=== PATIENT | female | born 1985 | race Hispanic/Latino ===

== ENCOUNTER 2024-04-19 12:58 | Inpatient (IN) | payer SELFPAY ==
[~2024-04-19] VITALS: Ht 152.4 cm; Wt 69.2 kg
[2024-04-19 00:30] VITALS: BP 104/63; PULSE 135; RESP 20; TEMP 100.1
--- NOTE | 2024-04-19 13:50 | ERN ---
ED Note History of Present Illness Stated Complaint: KIDNEY PAIN Chief Complaint: Flank Pain Time Seen by MD: 13:03 Time Seen by Midlevel: 13:03 Dictation: 39-year-old female presents to the ED for evaluation of left lower quadrant abdominal pain for the past three days. Patient reports she fell like this in the past when she had kidney stones. Reports associated body aches chills and subjective fever. Denies dysuria, hematuria. No nausea, vomiting, diarrhea. Allergies: Coded Allergies: No Known Drug Allergies (Verified Allergy, 12/27/11) Past Medical History Past Medical History: No Pertinent History Surgical History: Cholecystectomy Surgical History Other: KIDNEY STONE REMOVAL, NEPHROSTOMY TUBE RN Note Reviewed/Agreed w/PFSH: Yes Review of System Dictation Constitutional: Negative for fever,chills, and weight loss Eyes: Negative for injury, pain,redness, and discharge ENT: Negative for injury,pain or swelling Cardiovascular: Negative for chest pain, palpitations, and edema Respiratory: Negative for shortness of breath, cough, and wheezing, Abdomen/GI: Negative for nausea, vomiting, diarrhea, and constipation Back: Negative for injury and pain : Negative for injury, bleeding and discharge MS/Extremity: Negative for injury and deformity Skin: Negative for rash, and discoloration Neuro: Negative for headache, weakness, numbness, tingling, and seizure Psych: Negative for suicide ideation, homicidal ideation, and hallucinations Review of Systems: was completed Initial Vital Sign VS Vital Signs Date Time Temp Pulse Resp B/P (MAP) Pulse Ox O2 Delivery O2 Flow Rate FiO2 04/19/24 13:33 99.9 128 20 130/87 98 Room Air 04/19/24 15:17 0 21 Physical Exam Dictation Vital Signs reviewed General Appearance: Alert, oriented x 3, no acute distress, well developed, nourished. Head and Face: non-traumatic. Eyes: PERRL, pink conjunctivas, eyelid no trauma, anterior chamber with arcus senilis. Ears: Pinnas intact and no signs of trauma or erythema ear canals clear and no discharge TM no erythema Nose: No discharge, no bleeding. Oropharynx: Mouth normal, tongue pink, pharynx clear,no erythema, tonsils no exudates, no abscesses noted, mucous membrane moist Neck: Supple, non-tender, no thyromegaly, no masses, no JVD, no bruits Breast:Deferred Chest:No tenderness, no crepitus, no paradoxical movement, no retractions Lungs:Clear, well-ventilated, symmetric, no rales, no wheezing, no rhonchi, no stridor, good breath sounds bilaterally Heart: Regular rate, regular rhythm, no murmur, no gallops Vascular: no peripheral edema, Abdomen: positive bowel sounds, nondistended, no guarding, mild LLQ abdominal pain. No CVA tenderness nontender, no rebound, no masses no hepatomegaly, no splenomegaly, no Oconnor's sign, no hernias. Rectal: Deferred Genital: Deferred Neurological: Normal speech, motor function intact, sensory function intact Musculoskeletal: Neck nontender, full range of motion, back nontender, full range of motion, Extremities: nontender, full range of motion Skin: Color pink, dry, no turgor, no rash, no lacerations, no abrasions, no contusions. Lymphatic: Deferred Results (Laboratory/Radiology) Laboratory/Radiology Laboratory Tests Test 04/19/24 13:47 04/19/24 15:32 04/19/24 18:23 White Blood Count 11.3 K/uL (4.8-10.8) H Red Blood Count 4.49 MIL/uL (4.00-5.50) Hemoglobin 13.8 g/dL (12.0-16.0) Hematocrit 40.0 % (36-48) Mean Corpuscular Volume 89.1 fL (79-99) Mean Corpuscular Hemoglobin 30.7 pg (27.0-33.0) Mean Corpuscular Hemoglobin Concent 34.5 g/dL (32.0-36.0) Red Cell Distribution Width 12.5 % (11.0-15.5) Platelet Count 214 K/uL (130-400) Mean Platelet Volume 10.4 fL (7.5-10.5) Immature Granulocyte % (Auto) 0.6 % (0-1) Neutrophils (%) (Auto) 89.7 % (40.0-77.0) H Lymphocytes (%) (Auto) 8.0 % (21.0-51.0) L Monocytes (%) (Auto) 1.4 % (3.0-13.0) L Eosinophils (%) (Auto) 0.1 % (0.0-8.0) Basophils (%) (Auto) 0.2 % (0.0-5.0) Neutrophils # (Auto) 10.1 K/uL (1.8-7.7) H Lymphocytes # (Auto) 0.9 K/uL (1.0-4.8) L Monocytes # (Auto) 0.2 K/uL (0.1-1.0) Eosinophils # (Auto) 0.01 K/uL (0.00-0.70) Basophils # (Auto) 0.02 K/uL (0.00-0.20) Absolute Immature Granulocyte (auto 0.07 K/uL (0-1) Nucleated Red Blood Cells 0.0 % (0.0-0.19) White Cell Morphology Comment See comments Sodium Level 135 mmol/L (136-145) L Potassium Level 3.6 mmol/L (3.5-5.1) Chloride Level 99 mmol/L (101-111) L Carbon Dioxide Level 27 mmol/L (21-32) Blood Urea Nitrogen 8 mg/dL (7-18) Creatinine 1.2 mg/dL (0.5-1.0) H Glomerular Filtration Rate Calc 58 mL/min (>90) Random Glucose 176 mg/dL (70-105) H Total Calcium 9.1 mg/dL (8.5-10.1) Urine Color DARK-YELLOW (YELLOW) Urine Appearance CLOUDY (CLEAR) H Urine pH 6.5 (5.0-8.0) Urine Specific [place] 1.021 (1.001-1.031) Urine Protein 30 mg/dL (NEGATIVE) H Urine Glucose (UA) TRACE mg/dL (NEGATIVE) H Urine Ketones NEGATIVE mg/dL (NEGATIVE) Urine Occult Blood SMALL (NEGATIVE) H Urine Nitrate 2+ (NEGATIVE) H Urine Bilirubin 2 mg/dL (NEGATIVE) H Urine Urobilinogen 6 mg/dL (0.2-1.0) H Urine Leukocyte Esterase 500 Sam/uL (NEGATIVE) H Urine RBC 26-50 /HPF (0-1) H Urine WBC TNTC /HPF (0-1) H Urine Squamous Epithelial Cells MOD /HPF (0-2) Urine Bacteria RARE /HPF (None Seen) Urine HCG, Qualitative NEGATIVE (NEGATIVE) Lactic Acid Level 1.4 mmol/L (0.8-2.5) Labs Reviewed?: Yes CT Scan Comment: REASON: R/O KIDNEY STONES ORDERING PHYSICIAN: SUDARSHAN ALCANTAR PROCEDURE: ABD PEL WO - CT ABDOMEN/PELVIS W/O CONTRAST CT ABDOMEN/PELVIS W/O CONTRAST CLINICAL HISTORY: Renal colic COMPARISON: None TECHNIQUE: Sequential axial images of abdomen and pelvis without contrast and with sagittal and coronal reconstructions. CT was performed with one or more of the following dose reduction techniques: automated exposure control, adjustment of the mA and/or kV according to patient size, or use of iterative reconstruction technique FINDINGS: There is mild atelectasis in the lung bases. There is diffuse fatty infiltration liver. The spleen is unremarkable. Gallbladder surgically absent. The pancreas and adrenal glands are within normal limits. Note is made of multiple punctate bilateral renal nonobstructive calculi. There is mild left hydroureteronephrosis secondary to 2 calculi demonstrated in the distal left ureter just proximal ureteral fascicular junction with the largest measuring 4 mm. The bladder is unremarkable. There is no identified bowel obstruction. There is no free air or free fluid. There is no bulky abdominal or retroperitoneal lymphadenopathy. The appendix is unremarkable. The bony structures are unremarkable. IMPRESSION: Bilateral nonobstructive nephrolithiasis. Mild left hydroureteronephrosis secondary to distal left ureteral calculi. ED Course ED Course Orders Procedure Category Date Status Time Cbc With Differential LAB 04/19/24 Complete 13:12 Urinalysis Profile LAB 04/19/24 Complete 13:12 Ct Abdomen/Pelvis W/O CT 04/19/24 Resulted Contrast 13:12 0.9%Nacl 1000ml (Ns PHA 04/19/24 Complete 1000ml) 13:30 Ketorolac PHA 04/19/24 Complete Tromethamine 30mg/Ml 13:30 Ondansetron 4mg Inj PHA 04/19/24 Complete (Zofran 4mg Inj) 13:30 ,Urine Test LAB 04/19/24 Complete 13:12 Basic Metabolic Panel LAB 04/19/24 Complete 13:12 Culture Urine LARRY 04/19/24 In Process 16:35 Ceftriaxone 1g Vial PHA 04/19/24 Complete (Rocephine 1g Inj) 17:10 Ondansetron 4mg Inj PHA 04/19/24 In Process (Zofran 4mg Inj) 18:06 Morphine 2mg Syg PHA 04/19/24 In Process (Morphine 2mg Syg) 18:06 Blood Cult LARRY 04/19/24 In Process 18:08 Lactic Acid LAB 04/19/24 Complete 18:08 0.9%Nacl 1000ml (Ns PHA 04/19/24 Complete 1000ml) 18:30 Current Medications Medications (Trade) Dose Ordered Sig/Marychuy Route PRN Reason Start Time Stop Time Status Last Admin Dose Admin Ceftriaxone Sodium (ROCEphine 1G INJ) 1 gm ONCE IVPB 04/19/24 17:10 04/19/24 21:30 DC 04/19/24 18:18 Ketorolac Tromethamine (toRADol) 30 mg ONCE ONCE IVP 04/19/24 13:30 04/19/24 13:31 DC 04/19/24 15:12 Morphine Sulfate (morPHINE 2MG SYG) 2 mg ONCE IVP 04/19/24 18:06 04/19/24 22:00 04/19/24 18:13 Ondansetron HCl (zoFRAN 4MG INJ) 4 mg ONCE IVP 04/19/24 18:06 04/19/24 22:00 04/19/24 18:12 Ondansetron HCl (zoFRAN 4MG INJ) 4 mg ONCE ONCE IVP 04/19/24 13:30 04/19/24 13:31 DC 04/19/24 15:12 Sodium Chloride 1,000 ml @ 0 mls/hr ONCE ONCE IV 04/19/24 13:30 04/19/24 13:31 DC 04/19/24 15:12 Sodium Chloride 1,000 ml @ 0 mls/hr ONCE ONCE IV 04/19/24 18:30 04/19/24 18:31 DC 04/19/24 18:20 Vital Signs Date Time Temp Pulse Resp B/P (MAP) Pulse Ox O2 Delivery O2 Flow Rate FiO2 04/19/24 19:58 98.8 98 16 122/86 99 Room Air* 0 21 04/19/24 17:00 99.0 96 16 128/80 98 Room Air* 0 21 04/19/24 15:17 99.9 125 20 128/85 98 Room Air* 0 21 04/19/24 13:33 99.9 128 20 130/87 98 Room Air 2141 Spoke with hospitalist, Dr. Aguirre who agrees with plan for admission Medical Decision Making MDM MDM: Differential diagnosis: Pyelonephritis, UTI, nephrolithiasis, EFRA, abdominal pain, back pain Rationale: Tests considered and ordered secondary to shared decision making include: Previous outside records reviewed: Old ER visits. Risk of complication and/or morbidity or mortality of patient management: None Medications-Per medication reconciliation Need for hospitalization: Patient does meet criteria for hospitalization. Need for emergency major/minor surgery: No There are no social concerns with this patient. Prescription drug management Prescriptions will include symptomatic care Patient's prior external medical records from other ER visits were reviewed by me as indicated. Prior testing and results from previous visits were reviewed. Prior tests were taken into account with medical decision making and resource utilization, independent historian/historians were used to obtain complete medical history. I independently interpreted the test that were performed, results were reviewed by me and considered findings on radiology if ordered. Medical management and examination interpretation discussions were had by me with other qualified healthcare professionals as indicated for the patient's care. Patient when a low-grade fever and tachycardic due to pain. Patient was came has a Toradol here in the ER with improvement in symptoms and vital signs. Patient given dose of Rocephin and started on bolus of NS. Patient continued pain they are while waiting for CT results so he was given morphine. L eukocytosis 11.3. Elevated creatinine 1.2. Normal lactic acid. UA shows findings consistent with UTI with 500 leukocyte esterase and too many Kale and urine WBC years well as potential kidney stone with blood in the urine. CT scan shows bilateral nonobstructing nephrolithiasis and mild hydroureteronephrosis secondary to distal left urethral calculi with the largest measuring 4 mm. Discussed plan for possible admission with the patient and agreed with plan. Spoke with the hospitalist Dr. Aguirre, who agrees with the admission plan. Critical Care Note Critical Time: 30 minutes Comment(s) Total critical care time was 33 minutes. Excluding time for procedures. Management of critically ill patient with concern for acute decompensation. Management included interpretation of laboratory values and imaging, hemodynamics, time for consultation with consultants and admitting physician. DX & DISP Disposition: Inpatient Decision to Admit Date: Apr 19, 2024 Decision to Admit Time: 20:34 Departure Impression: Primary Impression: Urethral calculus Additional Impressions: Hydronephrosis, UTI (urinary tract infection), Sepsis, Intractable abdominal pain Critical Time: 30 minutes Condition: Stable Referrals: SELF,REFERRAL (PCP) I have reviewed the case, and I agree with, Diagnosis and Plan SUDARSHAN ALCANTAR Apr 19, 2024 13:50
[2024-04-19 14:14] LABS: BASOPHILS # (AUTO) 0.02 K/uL (0.00-0.20); BASOPHILS % (AUTO) 0.2 % (0.0-5.0); EOSINOPHILS # (AUTO) 0.01 K/uL (0.00-0.70); EOSINOPHILS % (AUTO) 0.1 % (0.0-8.0); IMMATURE GRANULOCYTE ABSOLUTE 0.07 K/uL (0-1); LYMPHOCYTES # (AUTO) 0.9 K/uL (1.0-4.8); MEAN CORPUSCULAR HEMOGLOBIN 30.7 pg (27.0-33.0); MEAN CORPUSCULAR HGB CONC 34.5 g/dL (32.0-36.0); MEAN CORPUSCULAR VOLUME 89.1 fL (79-99); MONOCYTES # (AUTO) 0.2 K/uL (0.1-1.0); MONOCYTES % (AUTO) 1.4 % (3.0-13.0); NEUTROPHILS # (AUTO) 10.1 K/uL (1.8-7.7); NEUTROPHILS % (AUTO) 89.7 % (40.0-77.0); PLATELET COUNT (AUTO) 214 K/uL (130-400); RED BLOOD CELL COUNT(AUTO) 4.49 MIL/uL (4.00-5.50); RED CELL DISTRIBUTION WIDTH 12.5 % (11.0-15.5); WHITE BLOOD COUNT (AUTO) 11.3 K/uL (4.8-10.8)
[2024-04-19 14:22] LABS: CREATININE 1.2 mg/dL (0.5-1.0); POTASSIUM 3.6 mmol/L (3.5-5.1)
[2024-04-19] MEDS: ketOROlac 30MG VIAL (30MG/ML) IVP ONE (15:12)
[2024-04-19] MEDS: ondanSETRON 4MG INJ IVP ONE (15:12)
[2024-04-19] MEDS: 0.9%NACL 1000ML 1,000 ML IV ONE ×2 (15:12→18:20)
--- NOTE | 2024-04-19 15:14 | NUR ---
PENDING TEST RESULTS FOR CT EXAM.
[2024-04-19 16:31] LABS: APPEARANCE,URINE CLOUDY (CLEAR); BILIRUBIN,URINE 2 mg/dL (NEGATIVE); COLOR,URINE DARK-YELLOW (YELLOW); GLUCOSE, URINE (UA) TRACE mg/dL (NEGATIVE); KETONES,URINE NEGATIVE (NEGATIVE); LEUKOCYTE ESTERASE ,URINE 500 Leu/uL (NEGATIVE); NITRATE,URINE 2+ (NEGATIVE); OCCULT BLOOD,URINE SMALL (NEGATIVE); PH,URINE 6.5 (5.0-8.0); PROTEIN,URINE 30 mg/dL (NEGATIVE); UROBILINOGEN,URINE 6 mg/dL (0.2-1.0)
[2024-04-19 16:34] LABS: ADD UA MICROSCOPIC YES; HCG,QUALITATIVE URINE NEGATIVE (NEGATIVE)
[2024-04-19 16:37] LABS: BACTERIA,URINE RARE /HPF (None Seen); MUCUS,URINE RARE LPF (None Seen); RBC,URINE 26-50 /HPF (0-1); SQUAMOUS EPITHELIAL CELL,UR MOD /HPF (0-2); WBC,URINE TNTC /HPF (0-1)
[2024-04-19] MEDS: ondanSETRON 4MG INJ IVP SCH (18:12)
[2024-04-19] MEDS: morPHINE 2 MG SYG IVP SCH (18:13)
[2024-04-19] MEDS: cefTRIAXone 1G VIAL IVPB SCH (18:18)
--- NOTE | 2024-04-19 20:11 | HMCIMG ---
CT ABDOMEN/PELVIS W/O CONTRAST CLINICAL HISTORY: Renal colic COMPARISON: None TECHNIQUE: Sequential axial images of abdomen and pelvis without contrast and with sagittal and coronal reconstructions. CT was performed with one or more of the following dose reduction techniques: automated exposure control, adjustment of the mA and/or kV according to patient size, or use of iterative reconstruction technique FINDINGS: There is mild atelectasis in the lung bases. There is diffuse fatty infiltration liver. The spleen is unremarkable. Gallbladder surgically absent. The pancreas and adrenal glands are within normal limits. Note is made of multiple punctate bilateral renal nonobstructive calculi. There is mild left hydroureteronephrosis secondary to 2 calculi demonstrated in the distal left ureter just proximal ureteral fascicular junction with the largest measuring 4 mm. The bladder is unremarkable. There is no identified bowel obstruction. There is no free air or free fluid. There is no bulky abdominal or retroperitoneal lymphadenopathy. The appendix is unremarkable. The bony structures are unremarkable. IMPRESSION: Bilateral nonobstructive nephrolithiasis. Mild left hydroureteronephrosis secondary to distal left ureteral calculi.
--- NOTE | 2024-04-19 21:54 | HP ---
History of Present Illness Reason for Visit: flank pain History of Present Illness Ms. Ridley 39-year-old female that was seen and examined today on 04/19/2024. Patient is a good historian and personal health. Patient states that she came to the emergency department with a chief complaint of dysuria. Onset was Monday04/16/2024. Location is genital. Duration is on and off. Character is described as burning. Symptoms are aggravated with voidi ng. Symptoms are not alleviated with Tylenol, [place] 0, chamomile tea. Patient reports associated nausea and vomiting times 10 episodes. Today in the emergency department creatinine 1.2, glucose 175 mg/dL, urinalysis positive for nitrate, leukocyte esterase, and white blood cells too many to count per high- powered microscopy field. Additionally CT of abdomen and pelvis shows bilateral nephrolithiasis, mild left hydroureteronephrosis with 4 mm calculus to the left ureter. For this reason emergency room physician recommended patient be admitted to the hospital. Past Medical History ADDITIONAL PAST MEDICAL HISTORY: [Denies] SOCIAL HISTORY: [Negative for smoking, alcohol use, drug use. Patient lives with her three children. Patient works at [employer]. Patient is typically independent of all her ADLs. Patient denies difficulty paying her bills. Patient has poor access to health care due to lack of health insurance.] SURGICAL HISTORY: [Cholecystectomy, nephrostomy tubes, bilateral tubal ligation] Review of Systems General: No Fever, No Chills, No Night Sweats, No Fatigue, No Malaise, No Appetite, No Other HEENT: No Head Aches, No Visual Changes, No Eye Pain, No Ear Pain, No Dysphasia, No Sinus Congestion, No Post Nasal Drip, No Sore Throat, No Other Pulmonary: No Dyspnea, No Cough, No Pleuritic Chest Pain, No Other Cardiovascular: No: Chest Pain, Palpitations, Orthopnea, Paroxysmal Noc. Dyspnea, Edema, Lt Headedness, Other Gastrointestinal: Nausea, Vomiting; No: Abdominal Pain, Diarrhea, Constipation, Melena, Hematochezia, Other Genitourinary: No Dysuria, No Frequency, No Incontinence, No Hematuria, No Retention, No Other Musculoskeletal: back pain; No: other, neck pain, shoulder pain, arm pain, hand pain, leg pain, foot pain Skin: No Urticaria, No Rash, No Other Neurological: No: Weakness, Numbness, Incoordination, Change in speech, Confusion, Seizures, Other Allergies: Coded Allergies: No Known Drug Allergies (Verified Allergy, 12/27/11) Exam Vital Signs Vital Signs Date Time Temp Pulse Resp B/P (MAP) Pulse Ox O2 Delivery O2 Flow Rate FiO2 04/19/24 19:58 98.8 98 16 122/86 99 Room Air* 0 21 General Appearance: Alert, Oriented X3, Cooperative, mild distress HEENT: Atraumatic, PERRLA, EOMI, Mucous membr. moist/pink Respiratory: Clear to auscultation, Normal air movement, NL respiratory effort Cardiovascular: Regular rate, Regular rhythm, Normal S1, Normal S2 Abdominal: Normal bowel sounds, No tenderness Extremities: No edema Skin: No significant lesion Neuro: Normal speech, Strength at 5/5 X4 ext, Sensation intact, Cranial nerves 3-12 NL Psych/Mental Status: Mental status NL, Mood NL, Thoughts/Content NL Assessment/Plan ASSESSMENT: [ Urinary tract infection, POA EFRA versus CKD, POA Hyperglycemia without a past medical history of Diabetes mellitius type2, POA Nephrolithiasis 4 mm left ureteral calculi] PLAN: [ Admit patient to medical floor as inpatient status. Empiric antibiotic therapy with Rocephin. Check urine culture, follow up with the results IV fluid maintenance therapy lactated Ringer's at 75 mL/HR Calculate FENA Check urine sodium, creatinine, osmolality Avoid nephrotoxic agents when possible Renally dose all medications when possible Consider consulting Nephrology service if any worsening renal function or evidence of ATN. Monitor patient's labs. Weight patient daily. Monitor intake and output Check hemoglobin A1c in a.m., consider starting sliding scale if hemoglobin A1c greater than 7.5% Start tamsulosin 0.4 mg by mouth once daily. Strain all urine GI prophylaxis, Protonix DVT prophylaxis, heparin ADVANCED CARE PLANNING 1. Which of the following were discussed? Hospice Care - Yes Therapeutic options - Yes Advance Directives - Yes- PATIENT STATES SHE DOES NOT HAVE ANY ADVANCE DIRECTIVES IN PLACE AT THIS TIME, HOWEVER HER MOTHER LULA Gimenez make decisions for her if she becomes unable. Other discussions - patient wishes to remain a full code at this time 2. Discussed with who? Patient 3. Voluntary nature of this service was explained to the patient? Yes 4. Amount of time spent - __ 16 minutes 5. Reviewed by Physician? (if this service was performed by NPP) Yes This document was generated in part using voice recognition software, occasional wrong word or sound alike substitutions may have occurred due to the inherent limitations of voice recognition software. Read the chart carefully and recognize using context, where the substitutions have occurred. Although every effort was made to edit the content, hand flesher and typing errors may occur ATTESTATION BY PHYSICIAN I have seen and examined the patient. I reviewed the documentation, medical decision making, and treatment plan as noted by the mid-level provider above. I agree with the findings and plan of care. BIB [facility] Apr 19, 2024 21:54
[2024-04-20] VITALS (7 sets, daily range): BP systolic 97–117; BP diastolic 58–76; PULSE 100–117; RESP 18–20; TEMP 97.9–98.8; O2SAT 96–99
[2024-04-20] MEDS ORDERED: ondanSETRON 4MG INJ IV PRN
[2024-04-20] MEDS ORDERED: ketOROlac 10 MG TABLET PO SCH
[2024-04-20] MEDS ORDERED: hydrALAZine 20MG/ML VIAL IV PRN
[2024-04-20] MEDS ORDERED: morPHINE 4 MG SYG IVP PRN
[2024-04-20] MEDS: LACTATED RINGERS 1000ML 1,000 ML IV SCH (00:22)
[2024-04-20] MEDS: tamSULOsin HCL 0.4 MG CAP.ER.24H PO ONE (00:22)
[2024-04-20] MEDS: acetaMINOPHEN 325 MG TAB PO PRN (00:22)
[2024-04-20] MEDS: PANTOPrazole 40 MG TAB DR PO SCH (00:48)
[2024-04-20 01:02] LABS: CREATININE,URINE RANDOM 209.81 mg/dL (30-135)
[2024-04-20 06:26] LABS: BASOPHILS # (AUTO) 0.04 K/uL (0.00-0.20); BASOPHILS % (AUTO) 0.3 % (0.0-5.0); EOSINOPHILS # (AUTO) 0.02 K/uL (0.00-0.70); EOSINOPHILS % (AUTO) 0.1 % (0.0-8.0); HEMATOCRIT 31.8 % (36-48); IMMATURE GRANULOCYTE ABSOLUTE 0.09 K/uL (0-1); LYMPHOCYTES # (AUTO) 1.5 K/uL (1.0-4.8); LYMPHOCYTES % (AUTO) 9.7 % (21.0-51.0); MEAN CORPUSCULAR HEMOGLOBIN 31.3 pg (27.0-33.0); MEAN CORPUSCULAR HGB CONC 34.9 g/dL (32.0-36.0); MEAN CORPUSCULAR VOLUME 89.6 fL (79-99); MONOCYTES # (AUTO) 1.4 K/uL (0.1-1.0); NEUTROPHILS # (AUTO) 12.5 K/uL (1.8-7.7); NEUTROPHILS % (AUTO) 80.3 % (40.0-77.0); PLATELET COUNT (AUTO) 145 K/uL (130-400); RED BLOOD CELL COUNT(AUTO) 3.55 MIL/uL (4.00-5.50); RED CELL DISTRIBUTION WIDTH 12.6 % (11.0-15.5); WHITE BLOOD COUNT (AUTO) 15.5 K/uL (4.8-10.8)
[2024-04-20 06:44] LABS: CREATININE 0.9 mg/dL (0.5-1.0); MAGNESIUM 1.4 mg/dL (1.80-2.40); PHOSPHORUS 3.7 mg/dL (2.5-4.9); POTASSIUM 3.6 mmol/L (3.5-5.1)
[2024-04-20] MEDS ORDERED: tamSULOsin HCL 0.4 MG CAP.ER.24H PO SCH (09:00)
[2024-04-20] MEDS ORDERED: FAMOTIDINE 20MG TAB PO SCH (09:00)
[2024-04-20] MEDS ORDERED: ENOXAPARIN SODIUM 40 MG/0.4 ML SYRINGE SQ SCH (09:00)
[2024-04-20] MEDS: HEParin 5,000 UNIT VIAL SQ SCH (10:41)
--- NOTE | 2024-04-20 14:08 | NUR ---
DCP/INITIAL ASSESSMENT SW met with patient. She states she lives with her children ages 18 & 12. She has no home services or DME. Patient is able to complete ADLs independently and drives. She has no PCP and uses [facility] on [address] in [place]. Patient has no issues with having stable senior living to live in or transportation. She and children have lived in their home for some time. No concerns voiced regarding not having enough food in the home. No safety concerns voiced regarding returning home. DCP is home. Addendum: 04/20/24 at 1411 by DENNIS MONTGOMERY Amended: Links added.
[2024-04-20] MEDS: CEFTRIAXONE 2GM VIAL IVPB SCH (17:21)
[2024-04-20] MEDS ORDERED: cefTRIAXone 1G VIAL IVPB SCH (17:30)
[2024-04-20] MEDS: tamSULOsin HCL 0.4 MG CAP.ER.24H PO SCH (20:39)
[2024-04-21] VITALS (9 sets, daily range): BP systolic 107–123; BP diastolic 67–83; PULSE 95–107; RESP 17–20; TEMP 97.9–98.7; O2SAT 97–98
[2024-04-21 04:50] LABS: BASOPHILS # (AUTO) 0.06 K/uL (0.00-0.20); BASOPHILS % (AUTO) 0.4 % (0.0-5.0); EOSINOPHILS # (AUTO) 0.18 K/uL (0.00-0.70); EOSINOPHILS % (AUTO) 1.2 % (0.0-8.0); HEMATOCRIT 33.4 % (36-48); IMMATURE GRANULOCYTE ABSOLUTE 0.26 K/uL (0-1); LYMPHOCYTES # (AUTO) 2.3 K/uL (1.0-4.8); LYMPHOCYTES % (AUTO) 15.4 % (21.0-51.0); MEAN CORPUSCULAR HEMOGLOBIN 30.4 pg (27.0-33.0); MEAN CORPUSCULAR HGB CONC 33.8 g/dL (32.0-36.0); MEAN CORPUSCULAR VOLUME 89.8 fL (79-99); MONOCYTES # (AUTO) 1.5 K/uL (0.1-1.0); MONOCYTES % (AUTO) 10.3 % (3.0-13.0); NEUTROPHILS # (AUTO) 10.5 K/uL (1.8-7.7); NEUTROPHILS % (AUTO) 70.9 % (40.0-77.0); PLATELET COUNT (AUTO) 159 K/uL (130-400); RED BLOOD CELL COUNT(AUTO) 3.72 MIL/uL (4.00-5.50); RED CELL DISTRIBUTION WIDTH 12.6 % (11.0-15.5); WHITE BLOOD COUNT (AUTO) 14.8 K/uL (4.8-10.8)
[2024-04-21 05:04] LABS: CREATININE 0.7 mg/dL (0.5-1.0); POTASSIUM 3.4 mmol/L (3.5-5.1)
--- NOTE | 2024-04-21 11:14 | PN ---
[facility] PROGRESS NOTE Date of Service: Apr Time of Service: 11:13 SUBJECTIVE: [ ] 04/20/24 patient was seen and examined. Case discussed with the RN. He was slightly nauseous but denies fever or chills. Continue antibiotics follow cultures REVIEW OF SYSTEMS CONSTITUTIONAL: Denies fevers, chills, or night sweats. No unintentional weight loss reported. NEUROLOGICAL: Denies headache, amaurosis fugax, motor weakness, sensory deficit, vertigo/spinning sensation, gait abnormalities, or tremors. ENT: No hearing loss, otalgia, otorrhea, rhinitis, rhinorrhea, hoarseness, or sore throat. CARDIOVASCULAR: Denies any exertional angina, dyspnea on exertion, orthopnea, paroxysmal nocturnal dyspnea, palpitations, life-threatening arrhythmias, claudication. PULMONARY: Denies any shortness of breath, cough, phlegm/sputum, hemoptysis, pleuritic chest pain. SLEEP: Denies morning headaches, daytime somnolence or napping. Denies difficulty falling asleep, staying asleep, waking from sleep. Denies knowledge of snoring. GASTROINTESTINAL: Denies any type of dysphagia to either liquids or solids. Denies nausea, vomiting, pyrosis, early satiety, abdominal pain, diarrhea, constipation, or changes in stool consistency or caliber. Denies coffee-ground emesis, hematemesis, hematochezia, or melanotic stools. GENITOURINARY: Denies frequency, urgency, nocturia, hematuria or incontinence (Storage/Irritative symptoms.) Low urinary stream, straining to void, urinary intermittency or hesitancy, splitting of the voiding stream, terminal dribbling. ENDOCRINOLOGIC: Denies polyuria, polydipsia, polyphagia or heat/cold intolerances. HEMATOLOGIC: Denies thrombophilia/previous clots, or coagulopathy/bleeding disorders. ONCOLOGIC: Denies personal history of malignancy. DERMATOLOGIC: Denies rashes or pruritus. PSYCHIATRIC: Denies any suicidal or homicidal ideation. Denies hallucinations. PHYSICAL EXAM GENERAL APPEARANCE: The patient is awake, alert, and oriented, in no acute cardiopulmonary distress. NEUROLOGICAL: Cranial nerves II-XII grossly intact. Motor is 5/5 in bilateral upper and lower extremities proximal to distal. No sensory deficits. HEENT: Face is symmetric. Pupils are equal and reactive. Extraocular movements are intact. NECK: Supple. No JVD. No thyromegaly. No submental, submandibular, pre- /postauricular, occipital or supraclavicular lymphadenopathy. CHEST: Normal chest expansion. No Telemetry. LUNGS: Absence of any rales, rhonchi or any wheezing. CARDIOVASCULAR: Regular. S1 and S2 normal. No appreciable rubs, murmurs or gallops. ABDOMEN: Soft, nontender, and nondistended. There is no rebound, voluntary guarding, or rigidity. : Deferred. No Lane. EXTREMITIES: Non-edematous and not cyanotic. No clubbing. Good capillary refill. SKIN: No skin breakdown. Vital Signs (last 8hr) Date Time Temp Pulse Resp B/P (MAP) Pulse Ox O2 Delivery O2 Flow Rate FiO2 04/21/24 08:24 98.2 102 18 117/72 95 Room Air 04/21/24 04:00 97.9 107 20 120/78 100 Room Air LABS: Laboratory: Test 04/21/24 04:23 04/20/24 06:20 04/19/24 18:23 04/19/24 15:32 Range/Units White Blood Count 14.8 H 4.8-10.8 K/uL Red Blood Count 3.72 L 4.00-5.50 MIL/uL Hemoglobin 11.3 L 12.0-16.0 g/dL Hematocrit 33.4 L 36-48 % Mean Corpuscular Volume 89.8 79-99 fL Mean Corpuscular Hemoglobin 30.4 27.0-33.0 pg Mean Corpuscular Hemoglobin Concent 33.8 32.0-36.0 g/dL Red Cell Distribution Width 12.6 11.0-15.5 % Platelet Count 159 130-400 K/uL Mean Platelet Volume 10.6 H 7.5-10.5 fL Immature Granulocyte % (Auto) 1.8 H 0-1 % Neutrophils (%) (Auto) 70.9 40.0-77.0 % Lymphocytes (%) (Auto) 15.4 L 21.0-51.0 % Monocytes (%) (Auto) 10.3 3.0-13.0 % Eosinophils (%) (Auto) 1.2 0.0-8.0 % Basophils (%) (Auto) 0.4 0.0-5.0 % Neutrophils # (Auto) 10.5 H 1.8-7.7 K/uL Lymphocytes # (Auto) 2.3 1.0-4.8 K/uL Monocytes # (Auto) 1.5 H 0.1-1.0 K/uL Eosinophils # (Auto) 0.18 0.00-0.70 K/uL Basophils # (Auto) 0.06 0.00-0.20 K/uL Absolute Immature Granulocyte (auto 0.26 0-1 K/uL Nucleated Red Blood Cells 0.0 0.0-0.19 % Sodium Level 144 136-145 mmol/L Potassium Level 3.4 L 3.5-5.1 mmol/L Chloride Level 108 101-111 mmol/L Carbon Dioxide Level 28 21-32 mmol/L Blood Urea Nitrogen 9 7-18 mg/dL Creatinine 0.7 0.5-1.0 mg/dL Glomerular Filtration Rate Calc 111 >90 mL/min Random Glucose 88 70-105 mg/dL Total Calcium 8.4 L 8.5-10.1 mg/dL Phosphorus Level 3.7 2.5-4.9 mg/dL Magnesium Level 1.40 L 1.80-2.40 mg/dL Lactic Acid Level 1.4 0.8-2.5 mmol/L Urine Color DARK-YELLOW YELLOW Urine Appearance CLOUDY H CLEAR Urine pH 6.5 5.0-8.0 Urine Specific Meally 1.021 1.001-1.031 Urine Protein 30 H NEGATIVE mg/dL Urine Glucose (UA) TRACE H NEGATIVE mg/dL Urine Ketones NEGATIVE NEGATIVE mg/dL Urine Occult Blood SMALL H NEGATIVE Urine Nitrate 2+ H NEGATIVE Urine Bilirubin 2 H NEGATIVE mg/dL Urine Urobilinogen 6 H 0.2-1.0 mg/dL Urine Leukocyte Esterase 500 H NEGATIVE Sam/uL Urine RBC 26-50 H 0-1 /HPF Urine WBC TNTC H 0-1 /HPF Urine Squamous Epithelial Cells MOD 0-2 /HPF Urine Bacteria RARE None Seen /HPF Urine Random Creatinine 209.81 H 30-135 mg/dL Urine Random Sodium 156 40-220 mmol/l Urine HCG, Qualitative NEGATIVE NEGATIVE Test 04/19/24 13:47 Range/Units White Cell Morphology Comment See comments Current Medications Medications (Trade) Dose Ordered Sig/Marychuy Route PRN Reason Start Time Stop Time Status Last Admin Dose Admin Acetaminophen (TYLenol 325MG TAB) 650 mg Q6H PRN PO TEMPERATURE GREATER THAN 101.5 04/20/24 00:00 05/20/24 00:00 04/20/24 20:39 650 MG Ceftriaxone Sodium (ROCEphine 1G INJ) 1 gm ONCE IVPB 04/19/24 17:10 04/19/24 21:30 DC 04/19/24 18:18 1 GM Ceftriaxone Sodium (ROCEphine 1G INJ) 1 gm Q24H IVPB 04/20/24 17:30 04/20/24 11:27 DC Ceftriaxone Sodium (Rocephin 2gm Inj) 2 gm Q24H IVPB 04/20/24 17:30 04/30/24 17:29 04/20/24 17:21 2 GM Enoxaparin Sodium (Lovenox) 40 mg DAILY SQ 04/20/24 09:00 04/20/24 00:01 DC Famotidine (Pepcid 20mg Tab) 20 mg DAILY PO 04/20/24 09:00 04/20/24 00:01 DC Heparin Sodium (Porcine) (HEParin 5,000 UNIT VIAL) 5,000 unit BID SQ 04/20/24 09:00 05/20/24 08:59 04/21/24 09:33 5,000 UNIT Hydralazine HCl (APRESOLine 20MG INJ) 10 mg Q6H PRN IV For:SBP above 160;DBP above 90 04/20/24 00:00 05/20/24 00:00 Ketorolac Tromethamine (ketOROlac troMETHamine) 10 mg Q8H PO 04/20/24 00:00 04/20/24 00:01 DC Lactated Ringer's 1,000 ml @ 75 mls/hr [id number] IV 04/20/24 00:00 05/20/24 00:00 04/21/24 03:14 75 MLS/HR Morphine Sulfate (morPHINE 2MG SYG) 2 mg ONCE IVP 04/19/24 18:06 04/19/24 22:00 DC 04/19/24 18:13 2 MG Morphine Sulfate (morPHINE 4MG SYG) 4 mg Q4H PRN IVP SEVERE PAIN (7-10) 04/20/24 00:00 04/27/24 00:00 Ondansetron HCl (zoFRAN 4MG INJ) 4 mg ONCE IVP 04/19/24 18:06 04/19/24 22:00 DC 04/19/24 18:12 4 MG Ondansetron HCl (zoFRAN 4MG INJ) 4 mg Q6H PRN IV NAUSEA/VOMITING 04/20/24 00:00 05/20/24 00:00 Pantoprazole Sodium (PROTonix 40MG TAB) 40 mg Q24H PO 04/20/24 00:30 05/20/24 00:29 04/21/24 00:13 40 MG Tamsulosin HCl (FloMAX) 0.4 mg DAILY PO 04/20/24 09:00 04/20/24 11:50 DC Tamsulosin HCl (FloMAX) 0.4 mg Q24H PO 04/20/24 21:00 05/20/24 20:59 04/20/24 20:39 0.4 MG DIAGNOSTICS / RADIOLOGY: [ ] ASSESSMENT: ASSESSMENT: [ Urinary tract infection, POA EFRA versus CKD, POA Hyperglycemia without a past medical history of Diabetes mellitius type2, POA Nephrolithiasis 4 mm left ureteral calculi] PLAN: . Empiric antibiotic therapy with Rocephin. Check urine culture, follow up with the results IV fluid maintenance therapy lactated Ringer's at 75 mL/HR Calculate FENA Check urine sodium, creatinine, osmolality Avoid nephrotoxic agents when possible Renally dose all medications when possible Consider consulting Nephrology service if any worsening renal function or evidence of ATN. Monitor patient's labs. Weight patient daily. Monitor intake and output Check hemoglobin A1c in a.m., consider starting sliding scale if hemoglobin A1c greater than 7.5% Start tamsulosin 0.4 mg by mouth once daily. Strain all urine GI prophylaxis, Protonix DVT prophylaxis, heparin ADVANCED CARE PLANNING 1. Which of the following were discussed? Hospice Care - Yes Therapeutic options - Yes Advance Directives - Yes- PATIENT STATES SHE DOES NOT HAVE ANY ADVANCE DIRECTIVES IN PLACE AT THIS TIME, HOWEVER HER MOTHER LULA Gimenez make decisions for her if she becomes unable. Other discussions - patient wishes to remain a full code at this time 2. Discussed with who? Patient 3. Voluntary nature of this service was explained to the patient? Yes 4. Amount of time spent - __ 16 minutes KECIA BETTS MD Apr 21, 2024 11:14
--- NOTE | 2024-04-21 15:47 | PN ---
[facility] PROGRESS NOTE Date of Service: Apr 21, 2024 Time of Service: 15:43 SUBJECTIVE: [ ] 04/20/24 patient was seen and examined. Case discussed with the RN. He was slightly nauseous but denies fever or chills. Continue antibiotics follow cultures 04/21 patient seen at bedside, no acute events overnight. She is feeling better today compared to yesterday, she has been afebrile, hemodynamically stable, episodes of tachycardia with heart rate ranging from 99 up to 107. WBC improved from 15.5 down to 14.8, hemoglobin stable at 11.3, remainder of her labs are relatively unremarkable. Here on positive for Gram-negative rods, blood positi ve for Proteus. We will consult Infectious Disease and continue IV antibiotics. REVIEW OF SYSTEMS 12 point review of systems negative unless noted in HPI PHYSICAL EXAM GENERAL APPEARANCE: The patient is awake, alert, and oriented, in no acute cardiopulmonary distress. NEUROLOGICAL: Cranial nerves II-XII grossly intact. Motor is 5/5 in bilateral upper and lower extremities proximal to distal. No sensory deficits. HEENT: Face is symmetric. Pupils are equal and reactive. Extraocular movements are intact. NECK: Supple. No JVD. No thyromegaly. No submental, submandibular, pre-/postauricular, occipital or supraclavicular lymphadenopathy. CHEST: Normal chest expansion. No Telemetry. LUNGS: Absence of any rales, rhonchi or any wheezing. CARDIOVASCULAR: Regular. S1 and S2 normal. No appreciable rubs, murmurs or gallops. ABDOMEN: Soft, nontender, and nondistended. There is no rebound, voluntary guarding, or rigidity. : Deferred. No Lane. EXTREMITIES: Non-edematous and not cyanotic. No clubbing. Good capillary refill. SKIN: No skin breakdown. Vital Signs (last 8hr) Date Time Temp Pulse Resp B/P (MAP) Pulse Ox O2 Delivery O2 Flow Rate FiO2 04/21/24 11:49 98.2 99 17 121/70 97 Room Air 04/21/24 08:24 98.2 102 18 117/72 95 Room Air LABS: Laboratory: Test 04/21/24 04:23 04/20/24 06:20 04/19/24 18:23 Range/Units White Blood Count 14.8 H 4.8-10.8 K/uL Red Blood Count 3.72 L 4.00-5.50 MIL/uL Hemoglobin 11.3 L 12.0-16.0 g/dL Hematocrit 33.4 L 36-48 % Mean Corpuscular Volume 89.8 79-99 fL Mean Corpuscular Hemoglobin 30.4 27.0-33.0 pg Mean Corpuscular Hemoglobin Concent 33.8 32.0-36.0 g/dL Red Cell Distribution Width 12.6 11.0-15.5 % Platelet Count 159 130-400 K/uL Mean Platelet Volume 10.6 H 7.5-10.5 fL Immature Granulocyte % (Auto) 1.8 H 0-1 % Neutrophils (%) (Auto) 70.9 40.0-77.0 % Lymphocytes (%) (Auto) 15.4 L 21.0-51.0 % Monocytes (%) (Auto) 10.3 3.0-13.0 % Eosinophils (%) (Auto) 1.2 0.0-8.0 % Basophils (%) (Auto) 0.4 0.0-5.0 % Neutrophils # (Auto) 10.5 H 1.8-7.7 K/uL Lymphocytes # (Auto) 2.3 1.0-4.8 K/uL Monocytes # (Auto) 1.5 H 0.1-1.0 K/uL Eosinophils # (Auto) 0.18 0.00-0.70 K/uL Basophils # (Auto) 0.06 0.00-0.20 K/uL Absolute Immature Granulocyte (auto 0.26 0-1 K/uL Nucleated Red Blood Cells 0.0 0.0-0.19 % Sodium Level 144 136-145 mmol/L Potassium Level 3.4 L 3.5-5.1 mmol/L Chloride Level 108 101-111 mmol/L Carbon Dioxide Level 28 21-32 mmol/L Blood Urea Nitrogen 9 7-18 mg/dL Creatinine 0.7 0.5-1.0 mg/dL Glomerular Filtration Rate Calc 111 >90 mL/min Random Glucose 88 70-105 mg/dL Total Calcium 8.4 L 8.5-10.1 mg/dL Phosphorus Level 3.7 2.5-4.9 mg/dL Magnesium Level 1.40 L 1.80-2.40 mg/dL Lactic Acid Level 1.4 0.8-2.5 mmol/L Current Medications Medications (Trade) Dose Ordered Sig/Marychuy Route PRN Reason Start Time Stop Time Status Last Admin Dose Admin Acetaminophen (TYLenol 325MG TAB) 650 mg Q6H PRN PO TEMPERATURE GREATER THAN 101.5 04/20/24 00:00 05/20/24 00:00 04/20/24 20:39 650 MG Ceftriaxone Sodium (ROCEphine 1G INJ) 1 gm ONCE IVPB 04/19/24 17:10 04/19/24 21:30 DC 04/19/24 18:18 1 GM Ceftriaxone Sodium (ROCEphine 1G INJ) 1 gm Q24H IVPB 04/20/24 17:30 04/20/24 11:27 DC Ceftriaxone Sodium (Rocephin 2gm Inj) 2 gm Q24H IVPB 04/20/24 17:30 04/30/24 17:29 04/20/24 17:21 2 GM Enoxaparin Sodium (Lovenox) 40 mg DAILY SQ 04/20/24 09:00 04/20/24 00:01 DC Famotidine (Pepcid 20mg Tab) 20 mg DAILY PO 04/20/24 09:00 04/20/24 00:01 DC Heparin Sodium (Porcine) (HEParin 5,000 UNIT VIAL) 5,000 unit BID SQ 04/20/24 09:00 05/20/24 08:59 04/21/24 09:33 5,000 UNIT Hydralazine HCl (APRESOLine 20MG INJ) 10 mg Q6H PRN IV For:SBP above 160;DBP above 90 04/20/24 00:00 05/20/24 00:00 Ketorolac Tromethamine (ketOROlac troMETHamine) 10 mg Q8H PO 04/20/24 00:00 04/20/24 00:01 DC Lactated Ringer's 1,000 ml @ 75 mls/hr [id number] IV 04/20/24 00:00 05/20/24 00:00 04/21/24 03:14 75 MLS/HR Morphine Sulfate (morPHINE 2MG SYG) 2 mg ONCE IVP 04/19/24 18:06 04/19/24 22:00 DC 04/19/24 18:13 2 MG Morphine Sulfate (morPHINE 4MG SYG) 4 mg Q4H PRN IVP SEVERE PAIN (7-10) 04/20/24 00:00 04/27/24 00:00 Ondansetron HCl (zoFRAN 4MG INJ) 4 mg ONCE IVP 04/19/24 18:06 04/19/24 22:00 DC 04/19/24 18:12 4 MG Ondansetron HCl (zoFRAN 4MG INJ) 4 mg Q6H PRN IV NAUSEA/VOMITING 04/20/24 00:00 05/20/24 00:00 Pantoprazole Sodium (PROTonix 40MG TAB) 40 mg Q24H PO 04/20/24 00:30 05/20/24 00:29 04/21/24 00:13 40 MG Tamsulosin HCl (FloMAX) 0.4 mg DAILY PO 04/20/24 09:00 04/20/24 11:50 DC Tamsulosin HCl (FloMAX) 0.4 mg Q24H PO 04/20/24 21:00 05/20/24 20:59 04/20/24 20:39 0.4 MG DIAGNOSTICS / RADIOLOGY: [ ] ASSESSMENT: ASSESSMENT: Urinary tract infection, POA Bacteremia, Proteus, POA EFRA, resolved POA Hyperglycemia without a past medical history of Diabetes mellitius type2, POA Nephrolithiasis 4 mm left ureteral calculi PLAN: Continue rocephin Continue LR @ 75 cc/hr Follow up with cultures and sensitivities ID consulted, appreciate recommendations Disposition: Pending cultures and ID recommendations FANNY LOVE MD Apr 21, 2024 15:47
[2024-04-21 16:04] LABS: HEMOGLOBIN A1C 5.7 % (4.0-6.0)
[2024-04-21] MEDS ORDERED: PoTASSium chloRIDE 20MEQ/100ML 100 ML IV PRN (16:30)
[2024-04-21] MEDS ORDERED: PoTASSium chl 10% ELIXIR 20MEQ 20 MEQ/15 ML UDCUP PO PRN (16:30)
--- NOTE | 2024-04-21 20:58 | PN ---
INFECTIOUS DISEASE FOLLOWUP NOTE DATE OF SERVICE: 04/21/2024 SUBJECTIVE: The patient is seen and examined at bedside. The patient has no fever, no chills. No nausea, no vomiting. No abdominal pain. Denies current shortness of breath, no palpitation or orthopnea. No ____. No bleeding tendency. OBJECTIVE: VITAL SIGNS: Temperature today 98.39. EYES: No icterus. Pupils equal and reactive. HENT: No oral thrush seen. Moist oral mucosa. NECK: Supple, no JVD or thyromegaly. LUNGS: Good air entry. No rales, no rhonchi. CARDIOVASCULAR: S1, S2 regular. No murmur heard. ABDOMEN: Full, soft, nontender. Bowel sounds are present. CENTRAL NERVOUS SYSTEM: Awake, alert, oriented x 3. No focal deficits. SKIN: No rashes, no itchiness. LYMPHATIC: No peripheral lymphadenopathy. MUSCULOSKELETAL: No joint swelling, erythema or tenderness. BACK: No deformity, no pressure ulcer. LABORATORY DATA: Blood culture growing Proteus mirabilis. Urine culture growing gram-negative peggy. ASSESSMENT: A 39-year-old female ____. * Gram-negative bacteremia and sepsis. * Urinary tract infection. * Hydronephrosis. * Nephrolithiasis. PLAN: * Continue ceftriaxone. * Continue current management. * Follow up cultures. * Continue antiemetic. * The patient will need urology evaluation. TID: [id number] RECEIPT: [id number]
[2024-04-22] VITALS (8 sets, daily range): BP systolic 123–127; BP diastolic 76–91; PULSE 89–103; RESP 16–21; TEMP 98–99; O2SAT 97
[2024-04-22 05:56] LABS: BASOPHILS # (AUTO) 0.07 K/uL (0.00-0.20); BASOPHILS % (AUTO) 0.6 % (0.0-5.0); EOSINOPHILS # (AUTO) 0.16 K/uL (0.00-0.70); EOSINOPHILS % (AUTO) 1.5 % (0.0-8.0); HEMATOCRIT 32.7 % (36-48); IMMATURE GRANULOCYTE ABSOLUTE 0.48 K/uL (0-1); LYMPHOCYTES # (AUTO) 2.5 K/uL (1.0-4.8); LYMPHOCYTES % (AUTO) 23.3 % (21.0-51.0); MEAN CORPUSCULAR HEMOGLOBIN 30.5 pg (27.0-33.0); MEAN CORPUSCULAR HGB CONC 34.6 g/dL (32.0-36.0); MEAN CORPUSCULAR VOLUME 88.1 fL (79-99); MONOCYTES # (AUTO) 0.7 K/uL (0.1-1.0); MONOCYTES % (AUTO) 6.5 % (3.0-13.0); NEUTROPHILS # (AUTO) 6.9 K/uL (1.8-7.7); NEUTROPHILS % (AUTO) 63.7 % (40.0-77.0); PLATELET COUNT (AUTO) 192 K/uL (130-400); RED BLOOD CELL COUNT(AUTO) 3.71 MIL/uL (4.00-5.50); RED CELL DISTRIBUTION WIDTH 12.5 % (11.0-15.5); WHITE BLOOD COUNT (AUTO) 10.8 K/uL (4.8-10.8)
[2024-04-22 06:15] LABS: CREATININE 0.6 mg/dL (0.5-1.0); POTASSIUM 3.9 mmol/L (3.5-5.1)
--- NOTE | 2024-04-22 11:32 | PN ---
[facility] PROGRESS NOTE Date of Service: Apr 22, 2024 Time of Service: 11:28 SUBJECTIVE: [ ] 04/20/24 patient was seen and examined. Case discussed with the RN. He was slightly nauseous but denies fever or chills. Continue antibiotics follow cultures 04/21 patient seen at bedside, no acute events overnight. She is feeling better today compared to yesterday, she has been afebrile, hemodynamically stable, episodes of tachycardia with heart rate ranging from 99 up to 107. WBC improved from 15.5 down to 14.8, hemoglobin stable at 11.3, remainder of her labs are relatively unremarkable. Here on positive for Gram-negative rods, blood posit fariah for Proteus. We will consult Infectious Disease and continue IV antibiotics. 04/22 patient seen at bedside, no acute events overnight. She has been afebrile, with low-grade tachycardia heart rate ranging from 95 up to 103, hemodynamically stable saturating well on room air. WBC improved from 14.8 down to 10.8, hemoglobin stable at 11.3, same as yesterday, remainder of his labs are relatively unremarkable. Blood and urine both growing Proteus, infectious disease consulted, appreciate recommendations. They are recommending a Urology consult, we will consult and follow up with recommendations. REVIEW OF SYSTEMS 12 point review of systems negative unless noted in HPI PHYSICAL EXAM GENERAL APPEARANCE: The patient is awake, alert, and oriented, in no acute cardiopulmonary distress. NEUROLOGICAL: Cranial nerves II-XII grossly intact. Motor is 5/5 in bilateral upper and lower extremities proximal to distal. No sensory deficits. HEENT: Face is symmetric. Pupils are equal and reactive. Extraocular movements are intact. NECK: Supple. No JVD. No thyromegaly. No submental, submandibular, pre- /postauricular, occipital or supraclavicular lymphadenopathy. CHEST: Normal chest expansion. No Telemetry. LUNGS: Absence of any rales, rhonchi or any wheezing. CARDIOVASCULAR: Regular. S1 and S2 normal. No appreciable rubs, murmurs or gallops. ABDOMEN: Soft, nontender, and nondistended. There is no rebound, voluntary guarding, or rigidity. : Deferred. No Lane. EXTREMITIES: Non-edematous and not cyanotic. No clubbing. Good capillary refill. SKIN: No skin breakdown. Vital Signs (last 8hr) Date Time Temp Pulse Resp B/P (MAP) Pulse Ox O2 Delivery O2 Flow Rate FiO2 04/22/24 08:00 99.0 98 17 125/88 97 Room Air 04/22/24 04:00 98.1 103 20 126/76 96 Room Air LABS: Laboratory: Test 04/22/24 05:38 04/21/24 04:23 Range/Units White Blood Count 10.8 4.8-10.8 K/uL Red Blood Count 3.71 L 4.00-5.50 MIL/uL Hemoglobin 11.3 L 12.0-16.0 g/dL Hematocrit 32.7 L 36-48 % Mean Corpuscular Volume 88.1 79-99 fL Mean Corpuscular Hemoglobin 30.5 27.0-33.0 pg Mean Corpuscular Hemoglobin Concent 34.6 32.0-36.0 g/dL Red Cell Distribution Width 12.5 11.0-15.5 % Platelet Count 192 130-400 K/uL Mean Platelet Volume 10.1 7.5-10.5 fL Immature Granulocyte % (Auto) 4.4 H 0-1 % Neutrophils (%) (Auto) 63.7 40.0-77.0 % Lymphocytes (%) (Auto) 23.3 21.0-51.0 % Monocytes (%) (Auto) 6.5 3.0-13.0 % Eosinophils (%) (Auto) 1.5 0.0-8.0 % Basophils (%) (Auto) 0.6 0.0-5.0 % Neutrophils # (Auto) 6.9 1.8-7.7 K/uL Lymphocytes # (Auto) 2.5 1.0-4.8 K/uL Monocytes # (Auto) 0.7 0.1-1.0 K/uL Eosinophils # (Auto) 0.16 0.00-0.70 K/uL Basophils # (Auto) 0.07 0.00-0.20 K/uL Absolute Immature Granulocyte (auto 0.48 0-1 K/uL Nucleated Red Blood Cells 0.0 0.0-0.19 % Sodium Level 144 136-145 mmol/L Potassium Level 3.9 3.5-5.1 mmol/L Chloride Level 108 101-111 mmol/L Carbon Dioxide Level 28 21-32 mmol/L Blood Urea Nitrogen 7 7-18 mg/dL Creatinine 0.6 0.5-1.0 mg/dL Glomerular Filtration Rate Calc 116 >90 mL/min Random Glucose 105 70-105 mg/dL Total Calcium 8.5 8.5-10.1 mg/dL Hemoglobin A1c 5.7 4.0-6.0 % Estimated Average Glucose (eAG) 117 70-126 mg/dL Current Medications Medications (Trade) Dose Ordered Sig/Marychuy Route PRN Reason Start Time Stop Time Status Last Admin Dose Admin Acetaminophen (TYLenol 325MG TAB) 650 mg Q6H PRN PO TEMPERATURE GREATER THAN 101.5 04/20/24 00:00 05/20/24 00:00 04/20/24 20:39 650 MG Ceftriaxone Sodium (ROCEphine 1G INJ) 1 gm ONCE IVPB 04/19/24 17:10 04/19/24 21:30 DC 04/19/24 18:18 1 GM Ceftriaxone Sodium (ROCEphine 1G INJ) 1 gm Q24H IVPB 04/20/24 17:30 04/20/24 11:27 DC Ceftriaxone Sodium (Rocephin 2gm Inj) 2 gm Q24H IVPB 04/20/24 17:30 04/30/24 17:29 04/21/24 16:12 2 GM Enoxaparin Sodium (Lovenox) 40 mg DAILY SQ 04/20/24 09:00 04/20/24 00:01 DC Famotidine (Pepcid 20mg Tab) 20 mg DAILY PO 04/20/24 09:00 04/20/24 00:01 DC Heparin Sodium (Porcine) (HEParin 5,000 UNIT VIAL) 5,000 unit BID SQ 04/20/24 09:00 05/20/24 08:59 04/21/24 09:33 5,000 UNIT Hydralazine HCl (APRESOLine 20MG INJ) 10 mg Q6H PRN IV For:SBP above 160;DBP above 90 04/20/24 00:00 05/20/24 00:00 Ketorolac Tromethamine (ketOROlac troMETHamine) 10 mg Q8H PO 04/20/24 00:00 04/20/24 00:01 DC Lactated Ringer's 1,000 ml @ 75 mls/hr [id number] IV 04/20/24 00:00 05/20/24 00:00 04/22/24 00:50 75 MLS/HR Magnesium Sulfate 50 ml @ 0 mls/hr PROTOCOL PRN IV MAGNESIUM PROTOCOL 04/21/24 16:30 05/21/24 16:29 Morphine Sulfate (morPHINE 2MG SYG) 2 mg ONCE IVP 04/19/24 18:06 04/19/24 22:00 DC 04/19/24 18:13 2 MG Morphine Sulfate (morPHINE 4MG SYG) 4 mg Q4H PRN IVP SEVERE PAIN (7-10) 04/20/24 00:00 04/27/24 00:00 Ondansetron HCl (zoFRAN 4MG INJ) 4 mg ONCE IVP 04/19/24 18:06 04/19/24 22:00 DC 04/19/24 18:12 4 MG Ondansetron HCl (zoFRAN 4MG INJ) 4 mg Q6H PRN IV NAUSEA/VOMITING 04/20/24 00:00 05/20/24 00:00 Pantoprazole Sodium (PROTonix 40MG TAB) 40 mg Q24H PO 04/20/24 00:30 05/20/24 00:29 04/22/24 00:48 40 MG Potassium Chloride 100 ml @ 100 mls/hr AD PRN IV POTASSIUM PROTOCOL 04/21/24 16:30 05/21/24 16:29 Potassium Chloride (K-Dur/Klor-Con 20meq) 20 meq AD PRN PO POTASSIUM PROTOCOL 04/21/24 16:30 05/21/24 16:29 Potassium Chloride (KCl 10% Elixir 20meq/15ml) 20 meq AD PRN PO POTASSIUM PROTOCOL 04/21/24 16:30 05/21/24 16:29 Tamsulosin HCl (FloMAX) 0.4 mg DAILY PO 04/20/24 09:00 04/20/24 11:50 DC Tamsulosin HCl (FloMAX) 0.4 mg Q24H PO 04/20/24 21:00 05/20/24 20:59 04/21/24 20:23 0.4 MG DIAGNOSTICS / RADIOLOGY: [ ] ASSESSMENT: ASSESSMENT: Urinary tract infection, Proteus POA Bacteremia, Proteus, POA EFRA, resolved POA Hyperglycemia without a past medical history of Diabetes mellitius type2, POA Nephrolithiasis 4 mm left ureteral calculi PLAN: Continue rocephin Continue LR @ 75 cc/hr Repeat blood cultures ordered, will follow up Urology consulted, appreciate recommendations Follow up with cultures and sensitivities ID consulted, appreciate recommendations Disposition: Pending repeat blood cultures, ID recommendations, urology recommendations FANNY LOVE MD Apr 22, 2024 11:32
--- NOTE | 2024-04-22 18:33 | PN ---
INFECTIOUS DISEASE PROGRESS NOTE Date of Service: Apr 22, 2024 SUBJECTIVE: This is a 39-year-old female patient who was seen and examined at bedside in room 327. Patient is awake, alert and oriented x3. Patient's final blood cultures and urine culture results came back positive for Proteus mirabilis. Patient was updated with these findings. Patient is pending a urologist evaluation for hydronephrosis. Patient is afebrile, temperature is 99.0 and the WBC has trended down to a normal level of 10.8. We will continue on ceftriaxone IV. No other issues reported by nursing. PHYSICAL EXAM EYES: Anicteric. Pupils equal and reactive. HENT: No oral thrush seen, moist Oral mucosa. NECK: Supple, no JVD or thyromegaly. LUNGS: Good air entry. No rales, no rhonchi. CARDIOVASCULAR: S1, S2 regular. No murmur heard. ABDOMEN: Soft, non tender, bowel sounds present, no organomegaly. CENTRAL NERVOUS SYSTEM: Awake, alert, oriented x 3. SKIN: No rashes, no swelling. LYMPHATICS: No peripheral lymphadenopathy. MUSCULOSKELETAL: No joint swelling, erythema or tenderness. EXTREMITIES: No cyanosis or clubbing BACK: No deformity, no pressure ulcer. GENITOURINARY: Dysuria POA. Vital Sign (Last 12 Hours) 04/22/24 04/22/24 04/22/24 04/22/24 08:00 08:28 12:00 16:00 Temp 99.0 98.2 98.2 Pulse 98 97 95 Resp 17 20 20 B/P (MAP) 125/88 127/76 123/91 Pulse Ox 97 97 99 97 O2 Delivery Room Air Room Air* Room Air Room Air O2 Flow Rate 0 FiO2 21 Intake & Output (last 24hrs) 04/21/24 04/21/24 04/22/24 15:00 23:00 07:00 Output Total 1900 ml 1500 ml Balance -1900 ml -1500 ml LABS: Laboratory: Test 04/22/24 05:38 04/21/24 04:23 Range/Units White Blood Count 10.8 4.8-10.8 K/uL Red Blood Count 3.71 L 4.00-5.50 MIL/uL Hemoglobin 11.3 L 12.0-16.0 g/dL Hematocrit 32.7 L 36-48 % Mean Corpuscular Volume 88.1 79-99 fL Mean Corpuscular Hemoglobin 30.5 27.0-33.0 pg Mean Corpuscular Hemoglobin Concent 34.6 32.0-36.0 g/dL Red Cell Distribution Width 12.5 11.0-15.5 % Platelet Count 192 130-400 K/uL Mean Platelet Volume 10.1 7.5-10.5 fL Immature Granulocyte % (Auto) 4.4 H 0-1 % Neutrophils (%) (Auto) 63.7 40.0-77.0 % Lymphocytes (%) (Auto) 23.3 21.0-51.0 % Monocytes (%) (Auto) 6.5 3.0-13.0 % Eosinophils (%) (Auto) 1.5 0.0-8.0 % Basophils (%) (Auto) 0.6 0.0-5.0 % Neutrophils # (Auto) 6.9 1.8-7.7 K/uL Lymphocytes # (Auto) 2.5 1.0-4.8 K/uL Monocytes # (Auto) 0.7 0.1-1.0 K/uL Eosinophils # (Auto) 0.16 0.00-0.70 K/uL Basophils # (Auto) 0.07 0.00-0.20 K/uL Absolute Immature Granulocyte (auto 0.48 0-1 K/uL Nucleated Red Blood Cells 0.0 0.0-0.19 % Sodium Level 144 136-145 mmol/L Potassium Level 3.9 3.5-5.1 mmol/L Chloride Level 108 101-111 mmol/L Carbon Dioxide Level 28 21-32 mmol/L Blood Urea Nitrogen 7 7-18 mg/dL Creatinine 0.6 0.5-1.0 mg/dL Glomerular Filtration Rate Calc 116 >90 mL/min Random Glucose 105 70-105 mg/dL Total Calcium 8.5 8.5-10.1 mg/dL Hemoglobin A1c 5.7 4.0-6.0 % Estimated Average Glucose (eAG) 117 70-126 mg/dL DIAGNOSTICS / RADIOLOGY: PATIENT: ANNY LAO ACCT: [id number] LOC: 3D U: [id number] AGE/SX: 39/F ROOM: [facility] RE04/19/[address]: FANNY LOVE MD : 1985 BED: 1 DIS: STATUS: ADM IN TLOC: SPEC: [id number] DEANNE: 04/19/24 STATUS: COMP REQ: [id number] RECD: 04/20/[address] [facility] [address]: FANNY LOVE MD SOURCE: BLOOD ENTR: 04/20/24 [facility] DR: SELF,REFERRAL SPDC: BLOOD ORDERED: AERO ID & SENS Procedure Result Evelia Date-Time AEROBIC ID & SENSITIVITIES Final 04/21/24-06 [facility] COLONY DESCRIPTION: DAY 1: GRAM NEGATIVE RODS AEROBIC AND ANAEROBIC BOTTLES IDENTIFICATION AND SENSITIVITY TO FOLLOW PROTEUS MIRABILIS PMIRABILIS M.I.C. RX --------- ---- AMPICILLIN >16 R AZTREONAM <=4 S CEFAZOLIN 8 R CEFTAZIDIME/AVIBACTAM <=8 S CEFTRIAXONE <=1 S CIPROFLOXACIN >2 R GENTAMICIN <=2 S LEVOFLOXACIN 2 R AMPICILLIN/SULBACTAM <=8/4 S MEROPENEM <=1 S PIPERACILLIN/TAZOBACTAM <=8 S TRIMETHOPRIM/SUFLAMETHOXAZOLE >2/38 R PATIENT: ANNY LAO ACCT: [id number] LOC: 3D U: [id number] AGE/SX: 39/F ROOM: 327 RE04/19/[address]: FANNY LOVE MD : 1985 BED: 1 DIS: STATUS: ADM IN TLOC: SPEC: [id number] DEANNE: 04/19/24 STATUS: COMP REQ: [id number] RECD: 04/20/[address] [facility] [address]: SUDARSHAN ALCANTAR SOURCE: [facility] [place] ENTR: 04/20/24 [facility] DR: SELF,REFERRAL SPDESC: CLEAN CAT KYREE VALLES MD ORDERED: AERO ID & SENS -- Procedure Result Evelia Date-Time AEROBIC ID & SENSITIVITIES Final 04/22/24 [facility] COLONY DESCRIPTION: DAY 1: COLONY COUNT: >100,000 CFU/ML GRAM NEGATIVE RODS IDENTIFICATION AND SENSITIVITY TO FOLLOW PROTEUS MIRABILIS PMIRABILIS M.I.C. RX --------- ---- AMPICILLIN >16 R AZTREONAM <=4 S CEFAZOLIN 4 I CEFTAZIDIME/AVIBACTAM <=8 S CEFTRIAXONE <=1 S CIPROFLOXACIN 2 R GENTAMICIN <=2 S LEVOFLOXACIN 1 I MEROPENEM <=1 S PIPERACILLIN/TAZOBACTAM <=8 S TRIMETHOPRIM/SUFLAMETHOXAZOLE >38 R ASSESSMENT: Proteus mirabilis bacteremia. Urinary tract infection with Proteus mirabilis. Left Hydronephrosis. Bilateral Nephrolithiasis. Leukocytosis. PLAN: Continue ceftriaxone. Continue pain management. Continue GI prophylaxis. Continue with antiemetics. We will monitor electrolytes. This case was reviewed and discussed with my supervising physician and the above assessment and plan was formulated and agreed upon. ATTESTATION BY PHYSICIAN I have seen and examined the patient. I reviewed the documentation, medical decision making, and treatment plan as noted by the mid-level provider above. I agree with the findings and plan of care. MARLEN MARSHALL MD, [facility]TA [facility] Apr 22, 2024 18:33
--- NOTE | 2024-04-22 21:02 | CONS ---
UROLOGY CONSULTATION NOTE Date of Service: Apr 22, 2024 Reason for Consultation: Bilateral renal calculi/obstructing left distal ureteral calculus/sepsis Requesting Physician: Hospitalist HISTORY OF PRESENT ILLNESS: 39-year-old female with a protracted history of nephrolithiasis presented to this hospital on Friday April 19, 2024 with multiple complaints. She was reporting left flank pain, described as a dull stabbing ache located in the left flank but occasionally radiating to left lower back and left groin. Pain was unrelenting, the time of presentation rated at about a nine on a scale of 1-10. There were no modifying factors at that time. Associated symptoms included dysuria as well as nausea and vomiting. She underwent a CT imaging which was without contrast which confirmed bilateral nonobstructing stones however there was evidence of an obstructing formed to 5 mm calculus in the left distal ureter with mild hydroureteronephrosis. Initial workup included blood an d urine cultures and there was evidence of growth of Proteus mirabilis both in the urine and the blood. Patient is being managed with intravenous antimicrobials. A urological consult requested. In the interval she has shown a response to therapy. She seems to be stable hemodynamically and the pain has subsided. REVIEW OF SYSTEMS CONSTITUTIONAL: Denies fever, chills, or fatigue. HEAD/FACE: No signs of trauma. EENT: Denies eye pain, blurred vision, double vision, or light sensitivity. RESPIRATORY: Denies shortness of breath, cough, wheezing CARDIOVASCULAR: Denies chest pain, palpitation, syncope GASTROINTESTINAL/ABDOMINAL: Denies abdominal pain, constipation, diarrhea, nausea or vomiting GENITOURINARY: Denies dysuria or hematuria. MUSCULOSKELETAL: Denies joint pain, tenderness, or trauma. INTEGUMENTARY: Denies rash or itchiness NEUROLOGICAL/PSYCH: Denies anxiety, depression, heat or cold intolerance. PAST MEDICAL HISTORY: Nephrolithiasis PAST SURGICAL HISTORY: History of nephrostomy tube placement PAST SOCIAL HISTORY: Denies ethanol, smoking and recreational drugs FAMILY HISTORY: Family history noncontributory to presenting complaint Coded Allergies: No Known Drug Allergies (Verified Allergy, 12/27/11) PHYSICAL EXAM EYES: Anicteric. Pupils equal and reactive. HENT: No oral thrush seen, moist Oral mucosa NECK: Supple, no JVD or thyromegaly. LUNGS: Good air entry. No rales, no rhonchi. CARDIOVASCULAR: S1, S2 regular. No murmur heard. ABDOMEN: Soft, non tender, bowel sounds present, no organomegaly CENTRAL NERVOUS SYSTEM: Awake, alert, oriented x 3. No focal deficits. SKIN: No rashes, no swelling. LYMPHATICS: No peripheral lymphadenopathy MUSCULOSKELETAL: No joint swelling, erythema or tenderness. EXTREMITIES: No cyanosis or clubbing BACK: No deformity, no pressure ulcer. GENITOURINARY: No dysuria or hematuria Vital Sign (Last 24 Hours) 04/22/24 04/22/24 08:28 19:43 Temp 98.1 Pulse 94 Resp 21 B/P (MAP) 125/84 Pulse Ox 97 O2 Delivery Room Air O2 Flow Rate 0 FiO2 21 Intake & Output (last 24hrs) 04/21/24 04/21/24 04/22/24 15:00 23:00 07:00 Output Total 1900 ml 1500 ml Balance -1900 ml -1500 ml LABS: Laboratory: Test 04/22/24 05:38 04/21/24 04:23 Range/Units White Blood Count 10.8 4.8-10.8 K/uL Red Blood Count 3.71 L 4.00-5.50 MIL/uL Hemoglobin 11.3 L 12.0-16.0 g/dL Hematocrit 32.7 L 36-48 % Mean Corpuscular Volume 88.1 79-99 fL Mean Corpuscular Hemoglobin 30.5 27.0-33.0 pg Mean Corpuscular Hemoglobin Concent 34.6 32.0-36.0 g/dL Red Cell Distribution Width 12.5 11.0-15.5 % Platelet Count 192 130-400 K/uL Mean Platelet Volume 10.1 7.5-10.5 fL Immature Granulocyte % (Auto) 4.4 H 0-1 % Neutrophils (%) (Auto) 63.7 40.0-77.0 % Lymphocytes (%) (Auto) 23.3 21.0-51.0 % Monocytes (%) (Auto) 6.5 3.0-13.0 % Eosinophils (%) (Auto) 1.5 0.0-8.0 % Basophils (%) (Auto) 0.6 0.0-5.0 % Neutrophils # (Auto) 6.9 1.8-7.7 K/uL Lymphocytes # (Auto) 2.5 1.0-4.8 K/uL Monocytes # (Auto) 0.7 0.1-1.0 K/uL Eosinophils # (Auto) 0.16 0.00-0.70 K/uL Basophils # (Auto) 0.07 0.00-0.20 K/uL Absolute Immature Granulocyte (auto 0.48 0-1 K/uL Nucleated Red Blood Cells 0.0 0.0-0.19 % Sodium Level 144 136-145 mmol/L Potassium Level 3.9 3.5-5.1 mmol/L Chloride Level 108 101-111 mmol/L Carbon Dioxide Level 28 21-32 mmol/L Blood Urea Nitrogen 7 7-18 mg/dL Creatinine 0.6 0.5-1.0 mg/dL Glomerular Filtration Rate Calc 116 >90 mL/min Random Glucose 105 70-105 mg/dL Total Calcium 8.5 8.5-10.1 mg/dL Hemoglobin A1c 5.7 4.0-6.0 % Estimated Average Glucose (eAG) 117 70-126 mg/dL DIAGNOSTICS / RADIOLOGY: CT scan stone protocol obtained 04/19/2024 was reviewed as explained in the HPI. ASSESSMENT: 39-year-old female with a history of nephrolithiasis presents with sepsis secondary to an obstructing stone in the left distal ureter currently stabilized PLAN: 1. Continuous draining patient's urine as the stone is 4 mm, a passable size. 2. Continue conservative management with fluid administration, pain control as well as tamsulosin q.h.s. 3. I will recommend the primary team to obtain a repeat CT scan to confirm stone passage, otherwise if the stone persists then given the picture of bacteremia, she will require a surgical intervention with stone extraction and stent placement 4. Thank you for involving us in the care of this patient. 60 minutes spent to complete a consult, more than half of the time spent at bedside in counseling and coordination of care and addressing all questions and concerns post by patient and patient's mother present, some time was spent discussing with members of her care team, the rest of the time was spent reviewing medical records past and present as well as imaging and laboratory data. CAITLIN CORBETT MD Apr 22, 2024 21:02
[2024-04-23] VITALS (8 sets, daily range): BP systolic 117–139; BP diastolic 80–92; PULSE 86–98; RESP 16–18; TEMP 98–98.9; O2SAT 99–100
[2024-04-23 05:32] LABS: BASOPHILS # (AUTO) 0.07 K/uL (0.00-0.20); BASOPHILS % (AUTO) 0.7 % (0.0-5.0); EOSINOPHILS # (AUTO) 0.18 K/uL (0.00-0.70); EOSINOPHILS % (AUTO) 1.7 % (0.0-8.0); HEMATOCRIT 33.9 % (36-48); IMMATURE GRANULOCYTE ABSOLUTE 0.53 K/uL (0-1); LYMPHOCYTES # (AUTO) 2.4 K/uL (1.0-4.8); LYMPHOCYTES % (AUTO) 23.6 % (21.0-51.0); MEAN CORPUSCULAR HEMOGLOBIN 30.4 pg (27.0-33.0); MEAN CORPUSCULAR HGB CONC 34.5 g/dL (32.0-36.0); MEAN CORPUSCULAR VOLUME 88.1 fL (79-99); MONOCYTES # (AUTO) 0.6 K/uL (0.1-1.0); MONOCYTES % (AUTO) 5.8 % (3.0-13.0); NEUTROPHILS # (AUTO) 6.5 K/uL (1.8-7.7); NEUTROPHILS % (AUTO) 63.1 % (40.0-77.0); PLATELET COUNT (AUTO) 253 K/uL (130-400); RED BLOOD CELL COUNT(AUTO) 3.85 MIL/uL (4.00-5.50); RED CELL DISTRIBUTION WIDTH 12.6 % (11.0-15.5); WHITE BLOOD COUNT (AUTO) 10.3 K/uL (4.8-10.8)
--- NOTE | 2024-04-23 05:32 | NUR ---
524 RECEIVED CALL FROM [facility] REGARDING STAT ORDER FOR CT ABDOMEN W/O CONTRAST, PER [facility] NEED ORDER FOR CT A/P OTHERWISE WILL NOT SHOW URETERS. 528 PLACED CALL TO HOSPITALIST [employer] PENDING CALL BACK FROM CECE BRENNAN NP 531 RECEIVED CALL BACK FROM CECE BRENNAN NP MADE AWARE OF CT ORDER, PER CECE BEAL GO AHEAD AND CHANGE ORDER TO CT A/P W/O CONTRAST.
[2024-04-23 05:56] LABS: CREATININE 0.7 mg/dL (0.5-1.0); POTASSIUM 3.8 mmol/L (3.5-5.1)
--- NOTE | 2024-04-23 08:13 | HMCIMG ---
CT ABDOMEN/PELVIS W/O CONTRAST HISTORY: Renal stone COMPARISON: None TECHNIQUE: Multiple sequential axial images of the abdomen and pelvis were obtained from the dome of the diaphragm through symphysis pubis. Patient was not given contrast through intravenous route. Oral contrast was not given. FINDINGS: There are mild interstitial fibrosis. No pleural effusion is seen bilaterally. There is no evidence of parenchymal disease or pulmonary nodule of the visualized lower lungs. Degenerative changes of the thoracolumbar spine are present. The heart is not enlarged. Liver is enlarged measuring 18.5 cm. The liver, spleen, adrenal glands and pancreas are unremarkable. No hydronephrosis is seen on the right. There is left hydronephrosis and left hydroureter with 6 mm renal stone in the left distal ureter. There are multiple bilateral renal pelvic stones with the largest on the left measuring 5 mm. Fecal material is seen in the colon. There are normal size retroperitoneal and mesenteric lymph nodes. No ascites is seen. No CT evidence of acute appendicitis is seen. Pelvic sidewalls are symmetric bilaterally. Bladder is poorly distended. IMPRESSION: 1. There is left hydronephrosis and left hydroureter with 6 mm renal stone in the left distal ureter. There are multiple bilateral renal pelvic stones with the largest on the left measuring [address] was performed with one or more following dose reduction techniques: automated exposure control, adjustment of the mA and kv according to patient's size, or use of a iterative reconstruction technique.
--- NOTE | 2024-04-23 11:17 | PN ---
[facility] PROGRESS NOTE Date of Service: Apr 23, 2024 Time of Service: 11:11 SUBJECTIVE: [ ] 04/20/24 patient was seen and examined. Case discussed with the RN. He was slightly nauseous but denies fever or chills. Continue antibiotics follow cultures 04/21 patient seen at bedside, no acute events overnight. She is feeling better today compared to yesterday, she has been afebrile, hemodynamically stable, episodes of tachycardia with heart rate ranging from 99 up to 107. WBC improved from 15.5 down to 14.8, hemoglobin stable at 11.3, remainder of her labs are relatively unremarkable. Here on positive for Gram-negative rods, blood posit fariha for Proteus. We will consult Infectious Disease and continue IV antibiotics. 04/22 patient seen at bedside, no acute events overnight. She has been afebrile, with low-grade tachycardia heart rate ranging from 95 up to 103, hemodynamically stable saturating well on room air. WBC improved from 14.8 down to 10.8, hemoglobin stable at 11.3, same as yesterday, remainder of his labs are relatively unremarkable. Blood and urine both growing Proteus, infectious disease consulted, appreciate recommendations. They are recommending a Urology consult, we will consult and follow up with recommendations. 04/23 Patient seen at bedside, no acute events overnight. Urology recommending repeat CT of the abdomen/pelvis to evaluate if stone at ureteral/pelvic junction has passed. CT done this am that appears to show stone still being retained, will follow up with urology regarding further recommendations REVIEW OF SYSTEMS 12 point review of systems negative unless noted in HPI PHYSICAL EXAM GENERAL APPEARANCE: The patient is awake, alert, and oriented, in no acute cardiopulmonary distress. NEUROLOGICAL: Cranial nerves II-XII grossly intact. Motor is 5/5 in bilateral upper and lower extremities proximal to distal. No sensory deficits. HEENT: Face is symmetric. Pupils are equal and reactive. Extraocular movements are intact. NECK: Supple. No JVD. No thyromegaly. No submental, submandibular, pre- /postauricular, occipital or supraclavicular lymphadenopathy. CHEST: Normal chest expansion. No Telemetry. LUNGS: Absence of any rales, rhonchi or any wheezing. CARDIOVASCULAR: Regular. S1 and S2 normal. No appreciable rubs, murmurs or gallops. ABDOMEN: Soft, nontender, and nondistended. There is no rebound, voluntary guarding, or rigidity. : Deferred. No Lane. EXTREMITIES: Non-edematous and not cyanotic. No clubbing. Good capillary refill. SKIN: No skin breakdown. Vital Signs (last 8hr) Date Time Temp Pulse Resp B/P (MAP) Pulse Ox O2 Delivery O2 Flow Rate FiO2 04/23/24 09:33 99 Room Air* 0 21 04/23/24 08:09 99.0 86 16 139/86 99 04/23/24 03:16 98.1 88 17 131/82 99 Room Air LABS: Laboratory: Test 04/23/24 05:21 Range/Units White Blood Count 10.3 4.8-10.8 K/uL Red Blood Count 3.85 L 4.00-5.50 MIL/uL Hemoglobin 11.7 L 12.0-16.0 g/dL Hematocrit 33.9 L 36-48 % Mean Corpuscular Volume 88.1 79-99 fL Mean Corpuscular Hemoglobin 30.4 27.0-33.0 pg Mean Corpuscular Hemoglobin Concent 34.5 32.0-36.0 g/dL Red Cell Distribution Width 12.6 11.0-15.5 % Platelet Count 253 # 130-400 K/uL Mean Platelet Volume 9.4 7.5-10.5 fL Immature Granulocyte % (Auto) 5.1 H 0-1 % Neutrophils (%) (Auto) 63.1 40.0-77.0 % Lymphocytes (%) (Auto) 23.6 21.0-51.0 % Monocytes (%) (Auto) 5.8 3.0-13.0 % Eosinophils (%) (Auto) 1.7 0.0-8.0 % Basophils (%) (Auto) 0.7 0.0-5.0 % Neutrophils # (Auto) 6.5 1.8-7.7 K/uL Lymphocytes # (Auto) 2.4 1.0-4.8 K/uL Monocytes # (Auto) 0.6 0.1-1.0 K/uL Eosinophils # (Auto) 0.18 0.00-0.70 K/uL Basophils # (Auto) 0.07 0.00-0.20 K/uL Absolute Immature Granulocyte (auto 0.53 0-1 K/uL Nucleated Red Blood Cells 0.0 0.0-0.19 % Sodium Level 143 136-145 mmol/L Potassium Level 3.8 3.5-5.1 mmol/L Chloride Level 107 101-111 mmol/L Carbon Dioxide Level 27 21-32 mmol/L Blood Urea Nitrogen 9 7-18 mg/dL Creatinine 0.7 0.5-1.0 mg/dL Glomerular Filtration Rate Calc 111 >90 mL/min Random Glucose 104 70-105 mg/dL Total Calcium 8.7 8.5-10.1 mg/dL Current Medications Medications (Trade) Dose Ordered Sig/Marychuy Route PRN Reason Start Time Stop Time Status Last Admin Dose Admin Acetaminophen (TYLenol 325MG TAB) 650 mg Q6H PRN PO TEMPERATURE GREATER THAN 101.5 04/20/24 00:00 05/20/24 00:00 04/20/24 20:39 650 MG Ceftriaxone Sodium (ROCEphine 1G INJ) 1 gm ONCE IVPB 04/19/24 17:10 04/19/24 21:30 DC 04/19/24 18:18 1 GM Ceftriaxone Sodium (ROCEphine 1G INJ) 1 gm Q24H IVPB 04/20/24 17:30 04/20/24 11:27 DC Ceftriaxone Sodium (Rocephin 2gm Inj) 2 gm Q24H IVPB 04/20/24 17:30 04/30/24 17:29 04/22/24 17:30 2 GM Enoxaparin Sodium (Lovenox) 40 mg DAILY SQ 04/20/24 09:00 04/20/24 00:01 DC Famotidine (Pepcid 20mg Tab) 20 mg DAILY PO 04/20/24 09:00 04/20/24 00:01 DC Heparin Sodium (Porcine) (HEParin 5,000 UNIT VIAL) 5,000 unit BID SQ 04/20/24 09:00 05/20/24 08:59 04/21/24 09:33 5,000 UNIT Hydralazine HCl (APRESOLine 20MG INJ) 10 mg Q6H PRN IV For:SBP above 160;DBP above 90 04/20/24 00:00 05/20/24 00:00 Ketorolac Tromethamine (ketOROlac troMETHamine) 10 mg Q8H PO 04/20/24 00:00 04/20/24 00:01 DC Lactated Ringer's 1,000 ml @ 75 mls/hr [id number] IV 04/20/24 00:00 05/20/24 00:00 04/22/24 17:33 75 MLS/HR Magnesium Sulfate 50 ml @ 0 mls/hr PROTOCOL PRN IV MAGNESIUM PROTOCOL 04/21/24 16:30 05/21/24 16:29 Morphine Sulfate (morPHINE 2MG SYG) 2 mg ONCE IVP 04/19/24 18:06 04/19/24 22:00 DC 04/19/24 18:13 2 MG Morphine Sulfate (morPHINE 4MG SYG) 4 mg Q4H PRN IVP SEVERE PAIN (7-10) 04/20/24 00:00 04/27/24 00:00 Ondansetron HCl (zoFRAN 4MG INJ) 4 mg ONCE IVP 04/19/24 18:06 04/19/24 22:00 DC 04/19/24 18:12 4 MG Ondansetron HCl (zoFRAN 4MG INJ) 4 mg Q6H PRN IV NAUSEA/VOMITING 04/20/24 00:00 05/20/24 00:00 Pantoprazole Sodium (PROTonix 40MG TAB) 40 mg Q24H PO 04/20/24 00:30 05/20/24 00:29 04/23/24 00:18 40 MG Potassium Chloride 100 ml @ 100 mls/hr AD PRN IV POTASSIUM PROTOCOL 04/21/24 16:30 05/21/24 16:29 Potassium Chloride (K-Dur/Klor-Con 20meq) 20 meq AD PRN PO POTASSIUM PROTOCOL 04/21/24 16:30 05/21/24 16:29 Potassium Chloride (KCl 10% Elixir 20meq/15ml) 20 meq AD PRN PO POTASSIUM PROTOCOL 04/21/24 16:30 05/21/24 16:29 Tamsulosin HCl (FloMAX) 0.4 mg DAILY PO 04/20/24 09:00 04/20/24 11:50 DC Tamsulosin HCl (FloMAX) 0.4 mg Q24H PO 04/20/24 21:00 05/20/24 20:59 04/22/24 20:27 0.4 MG DIAGNOSTICS / RADIOLOGY: [ ] ASSESSMENT: ASSESSMENT: Urinary tract infection, Proteus POA Bacteremia, Proteus, POA Retained renal stone at left ureteropelvic junction Left hydronephrosis/hydroureter EFRA, resolved POA Hyperglycemia without a past medical history of Diabetes mellitius type2, POA Nephrolithiasis 4 mm left ureteral calculi PLAN: Continue rocephin Continue LR @ 75 cc/hr Repeat CT abdomen/pelvis showing retained renal stone at ureteropelvic junction Repeat blood cultures ordered, will follow up Urology consulted, appreciate recommendations Follow up with cultures and sensitivities ID consulted, appreciate recommendations Disposition: Pending repeat blood cultures, ID recommendations, urology recommendations FANNY LOVE MD Apr 23, 2024 11:17
[2024-04-23] MEDS: PoTASSium chloRIDE 20MEQ ER 20 MEQ ERTAB PO PRN (12:24)
--- NOTE | 2024-04-23 15:54 | PN ---
INFECTIOUS DISEASE PROGRESS NOTE Date of Service: Apr 23, 2024 SUBJECTIVE: This is a 39-year-old female patient who was seen and examined at bedside in room 327. Patient is awake, alert and oriented x3. patient is sitting up on the bedside chair. No fever reported this morning, temperature is 98.2 and the WBC has trended down to 10.3. Patient continue ceftriaxone IV for bacteremia and urine culture with Proteus mirabilis. No growth reported yet on the repeat blood cultures. A CT of the abdomen and pelvis was repeated today as recommended by Urology and is showing left hydronephrosis with a 6 mm renal stone in the left distal ureter and multiple bilateral renal pelvic stones with the largest one on the left measuring 5 mm. Nursing to update urologist on the to be CT results. We will continue on ceftriaxone IV. No reports of nausea or vomiting. No other issues reported by nursing. PHYSICAL EXAM EYES: Anicteric. Pupils equal and reactive. HENT: No oral thrush seen, moist Oral mucosa. NECK: Supple, no JVD or thyromegaly. LUNGS: Good air entry. No rales, no rhonchi. CARDIOVASCULAR: S1, S2 regular. No murmur heard. ABDOMEN: Soft, non tender, bowel sounds present, no organomegaly. CENTRAL NERVOUS SYSTEM: Awake, alert, oriented x 3. SKIN: No rashes, no swelling. LYMPHATICS: No peripheral lymphadenopathy. MUSCULOSKELETAL: No joint swelling, erythema or tenderness. EXTREMITIES: No cyanosis or clubbing BACK: No deformity, no pressure ulcer. GENITOURINARY: Dysuria POA. Vital Sign (Last 12 Hours) 04/23/24 04/23/24 04/23/24 08:09 09:33 11:59 Temp 99.0 98.2 Pulse 86 94 Resp 16 16 B/P (MAP) 139/86 122/90 Pulse Ox 99 99 97 O2 Delivery Room Air* O2 Flow Rate 0 FiO2 21 Intake & Output (last 24hrs) 04/22/24 04/22/24 04/23/24 15:00 23:00 07:00 Output Total 900 ml 900 ml Balance -900 ml -900 ml LABS: Laboratory: Test 04/23/24 05:21 Range/Units White Blood Count 10.3 4.8-10.8 K/uL Red Blood Count 3.85 L 4.00-5.50 MIL/uL Hemoglobin 11.7 L 12.0-16.0 g/dL Hematocrit 33.9 L 36-48 % Mean Corpuscular Volume 88.1 79-99 fL Mean Corpuscular Hemoglobin 30.4 27.0-33.0 pg Mean Corpuscular Hemoglobin Concent 34.5 32.0-36.0 g/dL Red Cell Distribution Width 12.6 11.0-15.5 % Platelet Count 253 # 130-400 K/uL Mean Platelet Volume 9.4 7.5-10.5 fL Immature Granulocyte % (Auto) 5.1 H 0-1 % Neutrophils (%) (Auto) 63.1 40.0-77.0 % Lymphocytes (%) (Auto) 23.6 21.0-51.0 % Monocytes (%) (Auto) 5.8 3.0-13.0 % Eosinophils (%) (Auto) 1.7 0.0-8.0 % Basophils (%) (Auto) 0.7 0.0-5.0 % Neutrophils # (Auto) 6.5 1.8-7.7 K/uL Lymphocytes # (Auto) 2.4 1.0-4.8 K/uL Monocytes # (Auto) 0.6 0.1-1.0 K/uL Eosinophils # (Auto) 0.18 0.00-0.70 K/uL Basophils # (Auto) 0.07 0.00-0.20 K/uL Absolute Immature Granulocyte (auto 0.53 0-1 K/uL Nucleated Red Blood Cells 0.0 0.0-0.19 % Sodium Level 143 136-145 mmol/L Potassium Level 3.8 3.5-5.1 mmol/L Chloride Level 107 101-111 mmol/L Carbon Dioxide Level 27 21-32 mmol/L Blood Urea Nitrogen 9 7-18 mg/dL Creatinine 0.7 0.5-1.0 mg/dL Glomerular Filtration Rate Calc 111 >90 mL/min Random Glucose 104 70-105 mg/dL Total Calcium 8.7 8.5-10.1 mg/dL ASSESSMENT: Proteus mirabilis bacteremia. Urinary tract infection with Proteus mirabilis. Left Hydronephrosis. Bilateral Nephrolithiasis. Leukocytosis. PLAN: Continue ceftriaxone. Continue pain management. Continue GI prophylaxis. Continue with antiemetics. Urologist has been consulted and following patient. We will monitor electrolytes. This case was reviewed and discussed with my supervising physician and the above assessment and plan was formulated and agreed upon. ATTESTATION BY PHYSICIAN I have seen and examined the patient. I reviewed the documentation, medical decision making, and treatment plan as noted by the mid-level provider above. I agree with the findings and plan of care. MARLEN MARSHALL MD, [facility] Apr 23, 2024 15:54
--- NOTE | 2024-04-23 18:48 | NUR ---
ATTEMPTED TO CALL DR. WALDROP OFFICE MULTIPLE TIMES TO NOTIFY DR. CORBTET OF CT ABD/PELVIS RESULTS. NO RESPONSE.
--- NOTE | 2024-04-23 23:01 | PN ---
UROLOGY PROGRESS NOTE Date of Service: Apr 23, 2024 Time of Service: 22:57 SUBJECTIVE: Recent Proteus mirabilis septicemia secondary to an obstructing left distal ureteral calculus. She has been managed conservatively since admission on 04/19/2024. A repeat CT scan obtained today to 01/30/2025 showed the stone had not moved at all. Hydroureteronephrosis persist albeit milder. Patient denies any flank pain. REVIEW OF SYSTEMS CONSTITUTIONAL: Denies fever, chills, or fatigue. HEAD/FACE: No signs of trauma. EENT: Denies eye pain, blurred vision, double vision, or light sensitivity. RESPIRATORY: Denies shortness of breath, cough, wheezing CARDIOVASCULAR: Denies chest pain, palpitation, syncope GASTROINTESTINAL/ABDOMINAL: Denies abdominal pain, constipation, diarrhea, nausea or vomiting GENITOURINARY: Denies dysuria or hematuria. MUSCULOSKELETAL: Denies joint pain, tenderness, or trauma. INTEGUMENTARY: Denies rash or itchiness NEUROLOGICAL/PSYCH: Denies anxiety, depression, heat or cold intolerance. PHYSICAL EXAM EYES: Anicteric. Pupils equal and reactive. HENT: No oral thrush seen, moist Oral mucosa NECK: Supple, no JVD or thyromegaly. LUNGS: Good air entry. No rales, no rhonchi. CARDIOVASCULAR: S1, S2 regular. No murmur heard. ABDOMEN: Soft, non tender, bowel sounds present, no organomegaly CENTRAL NERVOUS SYSTEM: Awake, alert, oriented x 3. No focal deficits. SKIN: No rashes, no swelling. LYMPHATICS: No peripheral lymphadenopathy MUSCULOSKELETAL: No joint swelling, erythema or tenderness. EXTREMITIES: No cyanosis or clubbing BACK: No deformity, no pressure ulcer. GENITOURINARY: No dysuria or hematuria Vital Signs (last 8hr) Date Time Temp Pulse Resp B/P (MAP) Pulse Ox O2 Delivery O2 Flow Rate FiO2 04/23/24 20:53 100 Room Air* 0 21 04/23/24 19:35 98.2 98 17 117/87 100 Room Air 04/23/24 15:49 98.6 95 18 120/92 98 LABS: Laboratory: Test 04/23/24 05:21 Range/Units White Blood Count 10.3 4.8-10.8 K/uL Red Blood Count 3.85 L 4.00-5.50 MIL/uL Hemoglobin 11.7 L 12.0-16.0 g/dL Hematocrit 33.9 L 36-48 % Mean Corpuscular Volume 88.1 79-99 fL Mean Corpuscular Hemoglobin 30.4 27.0-33.0 pg Mean Corpuscular Hemoglobin Concent 34.5 32.0-36.0 g/dL Red Cell Distribution Width 12.6 11.0-15.5 % Platelet Count 253 # 130-400 K/uL Mean Platelet Volume 9.4 7.5-10.5 fL Immature Granulocyte % (Auto) 5.1 H 0-1 % Neutrophils (%) (Auto) 63.1 40.0-77.0 % Lymphocytes (%) (Auto) 23.6 21.0-51.0 % Monocytes (%) (Auto) 5.8 3.0-13.0 % Eosinophils (%) (Auto) 1.7 0.0-8.0 % Basophils (%) (Auto) 0.7 0.0-5.0 % Neutrophils # (Auto) 6.5 1.8-7.7 K/uL Lymphocytes # (Auto) 2.4 1.0-4.8 K/uL Monocytes # (Auto) 0.6 0.1-1.0 K/uL Eosinophils # (Auto) 0.18 0.00-0.70 K/uL Basophils # (Auto) 0.07 0.00-0.20 K/uL Absolute Immature Granulocyte (auto 0.53 0-1 K/uL Nucleated Red Blood Cells 0.0 0.0-0.19 % Sodium Level 143 136-145 mmol/L Potassium Level 3.8 3.5-5.1 mmol/L Chloride Level 107 101-111 mmol/L Carbon Dioxide Level 27 21-32 mmol/L Blood Urea Nitrogen 9 7-18 mg/dL Creatinine 0.7 0.5-1.0 mg/dL Glomerular Filtration Rate Calc 111 >90 mL/min Random Glucose 104 70-105 mg/dL Total Calcium 8.7 8.5-10.1 mg/dL DIAGNOSTICS / RADIOLOGY: CT stone protocol obtained today 04/23/2024 shows stone in location. ASSESSMENT: 39-year-old female with a history of nephrolithiasis presents with sepsis secondary to an obstructing stone in the left distal ureter currently stabilized PLAN: 1. Repeat an updated imaging obtained today 04/23/2024 showed the stone is still in location. 2. Repeat blood cultures show resolution of the septicemia 3. We will make arrangements to treat patient and remove the stone before she leaves the hospital. We discussed in detail the choice of procedure and expectations. All questions were addressed. 30 minutes spent to complete the visit with more than half time spent at bedside in counseling and coordination of care and addressing all questions and concerns post by patient. Some time was spent discussing with members of her care team. The rest of the time was spent reviewing medical records CAITLIN CORBETT MD Apr 23, 2024 23:00
[2024-04-24] VITALS (17 sets, daily range): BP systolic 109–137; BP diastolic 66–92; PULSE 82–109; RESP 15–20; TEMP 97–98.4; O2SAT 98
[2024-04-24 06:32] LABS: BASOPHILS # (AUTO) 0.11 K/uL (0.00-0.20); BASOPHILS % (AUTO) 0.9 % (0.0-5.0); EOSINOPHILS # (AUTO) 0.23 K/uL (0.00-0.70); EOSINOPHILS % (AUTO) 1.8 % (0.0-8.0); HEMATOCRIT 36.1 % (36-48); IMMATURE GRANULOCYTE ABSOLUTE 0.59 K/uL (0-1); LYMPHOCYTES # (AUTO) 2.6 K/uL (1.0-4.8); LYMPHOCYTES % (AUTO) 20.4 % (21.0-51.0); MEAN CORPUSCULAR HEMOGLOBIN 30.8 pg (27.0-33.0); MEAN CORPUSCULAR HGB CONC 34.9 g/dL (32.0-36.0); MEAN CORPUSCULAR VOLUME 88.3 fL (79-99); MONOCYTES # (AUTO) 0.8 K/uL (0.1-1.0); MONOCYTES % (AUTO) 6.2 % (3.0-13.0); NEUTROPHILS # (AUTO) 8.3 K/uL (1.8-7.7); PLATELET COUNT (AUTO) 307 K/uL (130-400); RED BLOOD CELL COUNT(AUTO) 4.09 MIL/uL (4.00-5.50); RED CELL DISTRIBUTION WIDTH 12.4 % (11.0-15.5); WHITE BLOOD COUNT (AUTO) 12.5 K/uL (4.8-10.8)
[2024-04-24 06:43] LABS: CREATININE 0.6 mg/dL (0.5-1.0)
--- NOTE | 2024-04-24 12:48 | PN ---
[facility] PROGRESS NOTE Date of Service: Apr 24, 2024 Time of Service: 12:42 SUBJECTIVE: [ ] 04/20/24 patient was seen and examined. Case discussed with the RN. He was slightly nauseous but denies fever or chills. Continue antibiotics follow cultures 04/21 patient seen at bedside, no acute events overnight. She is feeling better today compared to yesterday, she has been afebrile, hemodynamically stable, episodes of tachycardia with heart rate ranging from 99 up to 107. WBC improved from 15.5 down to 14.8, hemoglobin stable at 11.3, remainder of her labs are relatively unremarkable. Here on positive for Gram-negative rods, blood posit fariha for Proteus. We will consult Infectious Disease and continue IV antibiotics. 04/22 patient seen at bedside, no acute events overnight. She has been afebrile, with low-grade tachycardia heart rate ranging from 95 up to 103, hemodynamically stable saturating well on room air. WBC improved from 14.8 down to 10.8, hemoglobin stable at 11.3, same as yesterday, remainder of his labs are relatively unremarkable. Blood and urine both growing Proteus, infectious disease consulted, appreciate recommendations. They are recommending a Urology consult, we will consult and follow up with recommendations. 04/23 Patient seen at bedside, no acute events overnight. Urology recommending repeat CT of the abdomen/pelvis to evaluate if stone at ureteral/pelvic junction has passed. CT done this am that appears to show stone still being retained, will follow up with urology regarding further recommendations 04/24 Pt seen at bedside, no acute events overnight. She has no complaints this am. Urology assessed patient, recommending procedure with possible stent placement. Procedure has not been scheduled yet, will follow up. Continue with antibiotic therapy. REVIEW OF SYSTEMS 12 point review of systems negative unless noted in HPI PHYSICAL EXAM GENERAL APPEARANCE: The patient is awake, alert, and oriented, in no acute cardiopulmonary distress. NEUROLOGICAL: Cranial nerves II-XII grossly intact. Motor is 5/5 in bilateral upper and lower extremities proximal to distal. No sensory deficits. HEENT: Face is symmetric. Pupils are equal and reactive. Extraocular movements are intact. NECK: Supple. No JVD. No thyromegaly. No submental, submandibular, pre- /postauricular, occipital or supraclavicular lymphadenopathy. CHEST: Normal chest expansion. No Telemetry. LUNGS: Absence of any rales, rhonchi or any wheezing. CARDIOVASCULAR: Regular. S1 and S2 normal. No appreciable rubs, murmurs or gallops. ABDOMEN: Soft, nontender, and nondistended. There is no rebound, voluntary guarding, or rigidity. : Deferred. No Lane. EXTREMITIES: Non-edematous and not cyanotic. No clubbing. Good capillary refill. SKIN: No skin breakdown. Vital Signs (last 8hr) Date Time Temp Pulse Resp B/P (MAP) Pulse Ox O2 Delivery O2 Flow Rate FiO2 04/24/24 08:00 98.4 109 17 109/70 98 Room Air LABS: Laboratory: Test 04/24/24 06:17 Range/Units White Blood Count 12.5 H 4.8-10.8 K/uL Red Blood Count 4.09 4.00-5.50 MIL/uL Hemoglobin 12.6 12.0-16.0 g/dL Hematocrit 36.1 36-48 % Mean Corpuscular Volume 88.3 79-99 fL Mean Corpuscular Hemoglobin 30.8 27.0-33.0 pg Mean Corpuscular Hemoglobin Concent 34.9 32.0-36.0 g/dL Red Cell Distribution Width 12.4 11.0-15.5 % Platelet Count 307 130-400 K/uL Mean Platelet Volume 9.6 7.5-10.5 fL Immature Granulocyte % (Auto) 4.7 H 0-1 % Neutrophils (%) (Auto) 66.0 40.0-77.0 % Lymphocytes (%) (Auto) 20.4 L 21.0-51.0 % Monocytes (%) (Auto) 6.2 3.0-13.0 % Eosinophils (%) (Auto) 1.8 0.0-8.0 % Basophils (%) (Auto) 0.9 0.0-5.0 % Neutrophils # (Auto) 8.3 H 1.8-7.7 K/uL Lymphocytes # (Auto) 2.6 1.0-4.8 K/uL Monocytes # (Auto) 0.8 0.1-1.0 K/uL Eosinophils # (Auto) 0.23 0.00-0.70 K/uL Basophils # (Auto) 0.11 0.00-0.20 K/uL Absolute Immature Granulocyte (auto 0.59 0-1 K/uL Nucleated Red Blood Cells 0.0 0.0-0.19 % Sodium Level 141 136-145 mmol/L Potassium Level 4.0 3.5-5.1 mmol/L Chloride Level 106 101-111 mmol/L Carbon Dioxide Level 27 21-32 mmol/L Blood Urea Nitrogen 13 7-18 mg/dL Creatinine 0.6 0.5-1.0 mg/dL Glomerular Filtration Rate Calc 116 >90 mL/min Random Glucose 106 H 70-105 mg/dL Total Calcium 9.0 8.5-10.1 mg/dL Current Medications Medications (Trade) Dose Ordered Sig/Marychuy Route PRN Reason Start Time Stop Time Status Last Admin Dose Admin Acetaminophen (TYLenol 325MG TAB) 650 mg Q6H PRN PO TEMPERATURE GREATER THAN 101.5 04/20/24 00:00 05/20/24 00:00 04/20/24 20:39 650 MG Ceftriaxone Sodium (ROCEphine 1G INJ) 1 gm ONCE IVPB 04/19/24 17:10 04/19/24 21:30 DC 04/19/24 18:18 1 GM Ceftriaxone Sodium (ROCEphine 1G INJ) 1 gm Q24H IVPB 04/20/24 17:30 04/20/24 11:27 DC Ceftriaxone Sodium (Rocephin 2gm Inj) 2 gm Q24H IVPB 04/20/24 17:30 04/30/24 17:29 04/23/24 17:28 2 GM Enoxaparin Sodium (Lovenox) 40 mg DAILY SQ 04/20/24 09:00 04/20/24 00:01 DC Famotidine (Pepcid 20mg Tab) 20 mg DAILY PO 04/20/24 09:00 04/20/24 00:01 DC Heparin Sodium (Porcine) (HEParin 5,000 UNIT VIAL) 5,000 unit BID SQ 04/20/24 09:00 05/20/24 08:59 04/21/24 09:33 5,000 UNIT Hydralazine HCl (APRESOLine 20MG INJ) 10 mg Q6H PRN IV For:SBP above 160;DBP above 90 04/20/24 00:00 05/20/24 00:00 Ketorolac Tromethamine (ketOROlac troMETHamine) 10 mg Q8H PO 04/20/24 00:00 04/20/24 00:01 DC Lactated Ringer's 1,000 ml @ 75 mls/hr [id number] IV 04/20/24 00:00 05/20/24 00:00 04/22/24 17:33 75 MLS/HR Magnesium Sulfate 50 ml @ 0 mls/hr PROTOCOL PRN IV MAGNESIUM PROTOCOL 04/21/24 16:30 05/21/24 16:29 Morphine Sulfate (morPHINE 2MG SYG) 2 mg ONCE IVP 04/19/24 18:06 04/19/24 22:00 DC 04/19/24 18:13 2 MG Morphine Sulfate (morPHINE 4MG SYG) 4 mg Q4H PRN IVP SEVERE PAIN (7-10) 04/20/24 00:00 04/27/24 00:00 Ondansetron HCl (zoFRAN 4MG INJ) 4 mg ONCE IVP 04/19/24 18:06 04/19/24 22:00 DC 04/19/24 18:12 4 MG Ondansetron HCl (zoFRAN 4MG INJ) 4 mg Q6H PRN IV NAUSEA/VOMITING 04/20/24 00:00 05/20/24 00:00 Pantoprazole Sodium (PROTonix 40MG TAB) 40 mg Q24H PO 04/20/24 00:30 05/20/24 00:29 04/24/24 00:03 40 MG Potassium Chloride 100 ml @ 100 mls/hr AD PRN IV POTASSIUM PROTOCOL 04/21/24 16:30 05/21/24 16:29 Potassium Chloride (K-Dur/Klor-Con 20meq) 20 meq AD PRN PO POTASSIUM PROTOCOL 04/21/24 16:30 05/21/24 16:29 04/23/24 18:43 20 MEQ Potassium Chloride (KCl 10% Elixir 20meq/15ml) 20 meq AD PRN PO POTASSIUM PROTOCOL 04/21/24 16:30 05/21/24 16:29 Tamsulosin HCl (FloMAX) 0.4 mg DAILY PO 04/20/24 09:00 04/20/24 11:50 DC Tamsulosin HCl (FloMAX) 0.4 mg Q24H PO 04/20/24 21:00 05/20/24 20:59 04/23/24 20:52 0.4 MG DIAGNOSTICS / RADIOLOGY: [ ] ASSESSMENT: ASSESSMENT: Urinary tract infection, Proteus POA Bacteremia, Proteus, POA Retained renal stone at left ureteropelvic junction Left hydronephrosis/hydroureter EFRA, resolved POA Hyperglycemia without a past medical history of Diabetes mellitius type2, POA Nephrolithiasis 4 mm left ureteral calculi PLAN: Continue rocephin Continue LR @ 75 cc/hr Repeat CT abdomen/pelvis showing retained renal stone at ureteropelvic junction Repeat blood cultures ordered, will follow up Urology consulted, appreciate recommendations Urology recommending procedure with possible stent placement Follow up with cultures and sensitivities ID consulted, appreciate recommendations Disposition: Pending possible stent placement, ID recommendations, urology recommendations FANNY LOVE MD Apr 24, 2024 12:48
--- NOTE | 2024-04-24 17:11 | PN ---
INFECTIOUS DISEASE PROGRESS NOTE Date of Service: Apr 24, 2024 SUBJECTIVE: This is a 39-year-old female patient who was seen and examined at bedside in room 327. Patient is awake, alert and oriented x3. WBC slightly elevated at 12.5. Patient is afebrile, temperature is 98.4. Continues on ceftriaxone IV for bacteremia and urine culture with Proteus mirabilis. No growth reported yet on the repeat blood cultures results for 48 hours. Patient has been evaluated by Urology, Dr Cantor and will possibly undergo procedure for removal of stones today. Continues on scheduled Flomax and patient is denying pain at the time of for visit. PHYSICAL EXAM EYES: Anicteric. Pupils equal and reactive. HENT: No oral thrush seen, moist Oral mucosa. NECK: Supple, no JVD or thyromegaly. LUNGS: Good air entry. No rales, no rhonchi. CARDIOVASCULAR: S1, S2 regular. No murmur heard. ABDOMEN: Soft, non tender, bowel sounds present, no organomegaly. CENTRAL NERVOUS SYSTEM: Awake, alert, oriented x 3. SKIN: No rashes, no swelling. LYMPHATICS: No peripheral lymphadenopathy. MUSCULOSKELETAL: No joint swelling, erythema or tenderness. EXTREMITIES: No cyanosis or clubbing BACK: No deformity, no pressure ulcer. GENITOURINARY: Dysuria POA. Vital Sign (Last 12 Hours) 04/24/24 04/24/24 08:00 09:00 Temp 98.4 Pulse 109 Resp 17 B/P (MAP) 109/70 Pulse Ox 98 98 O2 Delivery Room Air Room Air* O2 Flow Rate 0 FiO2 21 Intake & Output (last 24hrs) 04/23/24 04/23/24 04/24/24 15:00 23:00 07:00 Output Total 2400 ml Balance -2400 ml LABS: Laboratory: Test 04/24/24 06:17 Range/Units White Blood Count 12.5 H 4.8-10.8 K/uL Red Blood Count 4.09 4.00-5.50 MIL/uL Hemoglobin 12.6 12.0-16.0 g/dL Hematocrit 36.1 36-48 % Mean Corpuscular Volume 88.3 79-99 fL Mean Corpuscular Hemoglobin 30.8 27.0-33.0 pg Mean Corpuscular Hemoglobin Concent 34.9 32.0-36.0 g/dL Red Cell Distribution Width 12.4 11.0-15.5 % Platelet Count 307 130-400 K/uL Mean Platelet Volume 9.6 7.5-10.5 fL Immature Granulocyte % (Auto) 4.7 H 0-1 % Neutrophils (%) (Auto) 66.0 40.0-77.0 % Lymphocytes (%) (Auto) 20.4 L 21.0-51.0 % Monocytes (%) (Auto) 6.2 3.0-13.0 % Eosinophils (%) (Auto) 1.8 0.0-8.0 % Basophils (%) (Auto) 0.9 0.0-5.0 % Neutrophils # (Auto) 8.3 H 1.8-7.7 K/uL Lymphocytes # (Auto) 2.6 1.0-4.8 K/uL Monocytes # (Auto) 0.8 0.1-1.0 K/uL Eosinophils # (Auto) 0.23 0.00-0.70 K/uL Basophils # (Auto) 0.11 0.00-0.20 K/uL Absolute Immature Granulocyte (auto 0.59 0-1 K/uL Nucleated Red Blood Cells 0.0 0.0-0.19 % Sodium Level 141 136-145 mmol/L Potassium Level 4.0 3.5-5.1 mmol/L Chloride Level 106 101-111 mmol/L Carbon Dioxide Level 27 21-32 mmol/L Blood Urea Nitrogen 13 7-18 mg/dL Creatinine 0.6 0.5-1.0 mg/dL Glomerular Filtration Rate Calc 116 >90 mL/min Random Glucose 106 H 70-105 mg/dL Total Calcium 9.0 8.5-10.1 mg/dL ASSESSMENT: Proteus mirabilis bacteremia. Urinary tract infection with Proteus mirabilis. Left Hydronephrosis. Bilateral Nephrolithiasis. Leukocytosis. PLAN: Continue ceftriaxone. Continue pain management. Continue GI prophylaxis. Continue with antiemetics. Urologist has evaluated patient and following. We will monitor electrolytes. This case was reviewed and discussed with my supervising physician and the above assessment and plan was formulated and agreed upon. ATTESTATION BY PHYSICIAN I have seen and examined the patient. I reviewed the documentation, medical decision making, and treatment plan as noted by the mid-level provider above. I agree with the findings and plan of care. MARLEN MARSHALL MD, [facility] Apr 24, 2024 17:11
--- NOTE | 2024-04-24 20:45 | NUR ---
PATIENT LEFT UNIT TO OR FOR PROCEDURE AT THIS TIME.
[2024-04-24] MEDS ORDERED: rocuRONium bROMide 10MG/1ML 5ML VL ONE (20:53)
[2024-04-24] MEDS ORDERED: LIDOCAINE PF 100MG/5ML (2%) SYRINGE 5ML ONE (20:53)
[2024-04-24] MEDS ORDERED: MIDAZOLAM HCL 1 MG/ML 2ML VIAL ONE (20:53)
[2024-04-24] MEDS ORDERED: proPOFol 10 MG/ML 20ML VIAL IV ONE (20:53)
[2024-04-24] MEDS ORDERED: FENTanyl CITRate PF 50 MCG/1 ML 2ML VIAL ONE ×2 (20:54→22:48)
[2024-04-24] MEDS ORDERED: phenylEPHRINE HCL 10 MG/ML 1ML VIAL IV ONE (21:00)
[2024-04-24] MEDS ORDERED: NEOSTIGMINE METHYLSULFATE 1MG/ML IV ONE (21:00)
[2024-04-24] MEDS ORDERED: SUCCINYLCHOLINE CHLORIDE 20 MG/ML 10 ML VIAL ONE (21:00)
[2024-04-24] MEDS ORDERED: GLYCOPYRROLATE 0.2 MG/ML 5 ML VIAL ONE (21:00)
[2024-04-24] MEDS ORDERED: IOHEXOL-350 50ML VIAL IV ONE (21:40)
[2024-04-24] MEDS ORDERED: dexaMETHasone SOD PHOSPHATE 10MG/ML 1ML VIAL ONE (21:55)
[2024-04-24] MEDS ORDERED: ondanSETRON 4MG INJ ONE (21:55)
[2024-04-24] MEDS ORDERED: ketOROlac 30MG VIAL (30MG/ML) ONE (22:48)
--- NOTE | 2024-04-24 23:05 | OP ---
Operative Note: DATE OF PROCEDURE: 04/24/24 SURGEON: CAITLIN CORBETT MD CARBURETOR SPECIALIST: Operating room staff ANESTHESIA: General anesthesia ANESTHESIOLOGIST/DETECTIVE: Anesthesia staff PREOPERATIVE DIAGNOSIS: 1. Obstructing 6 mm left distal ureteral calculus 2. Left hydroureteronephrosis 3. Sepsis POSTOPERATIVE DIAGNOSIS: 1. Obstructing 6 mm left distal ureteral calculus 2. Left hydroureteronephrosis 3. Sepsis 4. Left distal ureteral stricture SYNOPSIS: Left distal ureteral stone identified a successfully treated. Stent successfully inserted. She had a stricture that needed dilation. PROCEDURE: 1. 96880 Cystourethroscopy with left ureteroscopy with manipulation and removal of left ureteral calculi using a ZeroTip basket 2. [id number] Cystourethroscopy with left ureteroscopy with dilation of a left ureteral stricture 3. 99089 Cystourethroscopy with insertion of a left ureteral stent 4. 93859 Left retrograde pyelogram with interpretation ESTIMATED BLOOD LOSS: Minimal INDICATIONS: 39-year-old female with a extensive history of nephrolithiasis presented to the hospital with systemic symptoms diagnosed with sepsis. Urine culture and blood culture shows growth of Proteus mirabilis. Patient has been treated with antimicrobials and repeat blood cultures are negative. CT scan showed a 6 mm stone obstructing the left distal ureter with hydroureteronep hrosis. She is presenting today for treatment. DESCRIPTION OF PROCEDURE: Patient identified in the holding area, consent cash ified. She was prophylactic antimicrobials and brought to operating suite. She was placed in the supine position, after induction she underwent general anesthesia. Next she was placed in low lithotomy, her genitalia was prepped she was draped in a time-out was performed. A rigid 22 Jamaican cystoscope was introduced through meatus which was patent. Prabhakar cystourethroscopy was performed standard fashion, bladder surveilled in four corners no abnormalities. Left ureteral orifice identified cannulated with the open-ended ureteral catheter and a retrograde pyelogram was obtained. Hydroureteronephrosis was noted. We advanced a wire into the left collecting system with that in place we attempted semi-rigid ureteroscopy. We encountered the left distal ureteral stricture which required segmental dilation. A 12 Jamaican by 4 cm ureteral balloon dilator was used to accomplish this goal. Once this was completed ureteroscopy was accomplished the stone identified and a 0 tip basket was used to remove the stool fragments. Several passes were made to clean out the entire ureter. Once the lumens clean we obtained and a retrograde pyelogram and then made a decision to place a seven Jamaican by 26 cm double-J stent with the appropriate proximal and distal coils. Bladder was emptied and there were no complications. CAITLIN CORBETT MD Apr 24, 2024 23:05
--- NOTE | 2024-04-24 23:51 | NUR ---
PATIENT ARRIVED FROM PROCEDURE AT THIS TIME SHE IS RESTING COMFORTABLY, AOX4 FAMILY AT BEDSIDE. NO QUESTIONS OR COMPLAINTS AT THIS TIME, ADVISED TO USE CALL LIGHT IF NEEDING TO GET OUT OF BED. SIDERAILS UP X2 CALL LIGHT IN REACH AND LIGHTS ON. CONTINUING TO MONITOR.
--- NOTE | 2024-04-24 23:53 | HMCIMG ---
UROGRAPHY RETROGRADE REASON: LT ureteral calculus. COMPARISON: None TECHNIQUE: Retrograde urography was performed by referring physician. FINDINGS: Please see procedure report by referring physician. IMPRESSION: Intraoperative films.
[2024-04-25] VITALS (15 sets, daily range): BP systolic 110–150; BP diastolic 61–92; PULSE 72–115; RESP 16–19; TEMP 97.9–98.7; O2SAT 97–98
[2024-04-25] MEDS: SUGAMMADEX SODIUM 200 MG/2 ML VIAL IV ONE (00:03)
[2024-04-25 04:31] LABS: BASOPHILS # (AUTO) 0.09 K/uL (0.00-0.20); BASOPHILS % (AUTO) 0.4 % (0.0-5.0); EOSINOPHILS # (AUTO) 0.01 K/uL (0.00-0.70); HEMATOCRIT 38.5 % (36-48); IMMATURE GRANULOCYTE ABSOLUTE 0.42 K/uL (0-1); LYMPHOCYTES % (AUTO) 4.6 % (21.0-51.0); MEAN CORPUSCULAR HEMOGLOBIN 30.8 pg (27.0-33.0); MEAN CORPUSCULAR HGB CONC 34.3 g/dL (32.0-36.0); MEAN CORPUSCULAR VOLUME 89.7 fL (79-99); MONOCYTES # (AUTO) 0.8 K/uL (0.1-1.0); MONOCYTES % (AUTO) 3.9 % (3.0-13.0); NEUTROPHILS # (AUTO) 18.6 K/uL (1.8-7.7); NEUTROPHILS % (AUTO) 89.1 % (40.0-77.0); PLATELET COUNT (AUTO) 302 K/uL (130-400); RED BLOOD CELL COUNT(AUTO) 4.29 MIL/uL (4.00-5.50); RED CELL DISTRIBUTION WIDTH 12.3 % (11.0-15.5); WHITE BLOOD COUNT (AUTO) 20.9 K/uL (4.8-10.8)
[2024-04-25 04:48] LABS: CREATININE 0.6 mg/dL (0.5-1.0); POTASSIUM 4.2 mmol/L (3.5-5.1)
--- NOTE | 2024-04-25 11:42 | PN ---
[facility] PROGRESS NOTE Date of Service: Apr 25, 2024 Time of Service: 11:39 SUBJECTIVE: [ ] 04/20/24 patient was seen and examined. Case discussed with the RN. He was slightly nauseous but denies fever or chills. Continue antibiotics follow cultures 04/21 patient seen at bedside, no acute events overnight. She is feeling better today compared to yesterday, she has been afebrile, hemodynamically stable, episodes of tachycardia with heart rate ranging from 99 up to 107. WBC improved from 15.5 down to 14.8, hemoglobin stable at 11.3, remainder of her labs are relatively unremarkable. Here on positive for Gram-negative rods, blood posit fariha for Proteus. We will consult Infectious Disease and continue IV antibiotics. 04/22 patient seen at bedside, no acute events overnight. She has been afebrile, with low-grade tachycardia heart rate ranging from 95 up to 103, hemodynamically stable saturating well on room air. WBC improved from 14.8 down to 10.8, hemoglobin stable at 11.3, same as yesterday, remainder of his labs are relatively unremarkable. Blood and urine both growing Proteus, infectious disease consulted, appreciate recommendations. They are recommending a Urology consult, we will consult and follow up with recommendations. 04/23 Patient seen at bedside, no acute events overnight. Urology recommending repeat CT of the abdomen/pelvis to evaluate if stone at ureteral/pelvic junction has passed. CT done this am that appears to show stone still being retained, will follow up with urology regarding further recommendations 04/24 Pt seen at bedside, no acute events overnight. She has no complaints this am. Urology assessed patient, recommending procedure with possible stent placement. Procedure has not been scheduled yet, will follow up. Continue with antibiotic therapy. 04/25 patient is seen and examined at bedside, case discussed with the RN, no acute events overnight, during my visit the patient comfortably in bed, underwent left distal ureteral stone removal and dilatation of left ureteral stricture with a insertion of ureteral stent 04/24/2024. Tolerated the procedure well. During my visit she is comfortable, no nausea, no vomiting, no abdominal discomfort, WBC today 20.9. Discussed with the patient. REVIEW OF SYSTEMS 12 point review of systems negative unless noted in HPI PHYSICAL EXAM GENERAL APPEARANCE: The patient is awake, alert, and oriented, in no acute cardiopulmonary distress. NEUROLOGICAL: Cranial nerves II-XII grossly intact. Motor is 5/5 in bilateral upper and lower extremities proximal to distal. No sensory deficits. HEENT: Face is symmetric. Pupils are equal and reactive. Extraocular movements are intact. NECK: Supple. No JVD. No thyromegaly. No submental, submandibular, pre-/postauricular, occipital or supraclavicular lymphadenopathy. CHEST: Normal chest expansion. No Telemetry. LUNGS: Absence of any rales, rhonchi or any wheezing. CARDIOVASCULAR: Regular. S1 and S2 normal. No appreciable rubs, murmurs or gallops. ABDOMEN: Soft, nontender, and nondistended. There is no rebound, voluntary guarding, or rigidity. : Deferred. No Lnae. EXTREMITIES: Non-edematous and not cyanotic. No clubbing. Good capillary refill. SKIN: No skin breakdown. Vital Signs (last 8hr) Date Time Temp Pulse Resp B/P (MAP) Pulse Ox O2 Delivery O2 Flow Rate FiO2 04/25/24 08:28 98.2 115 18 119/70 95 Room Air 04/25/24 04:00 95 113/70 95 Room Air LABS: Laboratory: Test 04/25/24 03:16 Range/Units White Blood Count 20.9 #H 4.8-10.8 K/uL Red Blood Count 4.29 4.00-5.50 MIL/uL Hemoglobin 13.2 12.0-16.0 g/dL Hematocrit 38.5 36-48 % Mean Corpuscular Volume 89.7 79-99 fL Mean Corpuscular Hemoglobin 30.8 27.0-33.0 pg Mean Corpuscular Hemoglobin Concent 34.3 32.0-36.0 g/dL Red Cell Distribution Width 12.3 11.0-15.5 % Platelet Count 302 130-400 K/uL Mean Platelet Volume 9.6 7.5-10.5 fL Immature Granulocyte % (Auto) 2.0 H 0-1 % Neutrophils (%) (Auto) 89.1 H 40.0-77.0 % Lymphocytes (%) (Auto) 4.6 L 21.0-51.0 % Monocytes (%) (Auto) 3.9 3.0-13.0 % Eosinophils (%) (Auto) 0.0 0.0-8.0 % Basophils (%) (Auto) 0.4 0.0-5.0 % Neutrophils # (Auto) 18.6 H 1.8-7.7 K/uL Lymphocytes # (Auto) 1.0 1.0-4.8 K/uL Monocytes # (Auto) 0.8 0.1-1.0 K/uL Eosinophils # (Auto) 0.01 0.00-0.70 K/uL Basophils # (Auto) 0.09 0.00-0.20 K/uL Absolute Immature Granulocyte (auto 0.42 0-1 K/uL Nucleated Red Blood Cells 0.0 0.0-0.19 % Sodium Level 136 136-145 mmol/L Potassium Level 4.2 3.5-5.1 mmol/L Chloride Level 101 101-111 mmol/L Carbon Dioxide Level 27 21-32 mmol/L Blood Urea Nitrogen 11 7-18 mg/dL Creatinine 0.6 0.5-1.0 mg/dL Glomerular Filtration Rate Calc 116 >90 mL/min Random Glucose 132 H 70-105 mg/dL Total Calcium 8.9 8.5-10.1 mg/dL Current Medications Medications (Trade) Dose Ordered Sig/Marychuy Route PRN Reason Start Time Stop Time Status Last Admin Dose Admin Acetaminophen (TYLenol 325MG TAB) 650 mg Q6H PRN PO TEMPERATURE GREATER THAN 101.5 04/20/24 00:00 05/20/24 00:00 04/20/24 20:39 650 MG Ceftriaxone Sodium (ROCEphine 1G INJ) 1 gm ONCE IVPB 04/19/24 17:10 04/19/24 21:30 DC 04/19/24 18:18 1 GM Ceftriaxone Sodium (ROCEphine 1G INJ) 1 gm Q24H IVPB 04/20/24 17:30 04/20/24 11:27 DC Ceftriaxone Sodium (Rocephin 2gm Inj) 2 gm Q24H IVPB 04/20/24 17:30 04/30/24 17:29 04/24/24 18:42 2 GM Enoxaparin Sodium (Lovenox) 40 mg DAILY SQ 04/20/24 09:00 04/20/24 00:01 DC Famotidine (Pepcid 20mg Tab) 20 mg DAILY PO 04/20/24 09:00 04/20/24 00:01 DC Heparin Sodium (Porcine) (HEParin 5,000 UNIT VIAL) 5,000 unit BID SQ 04/20/24 09:00 05/20/24 08:59 04/25/24 09:05 5,000 UNIT Hydralazine HCl (APRESOLine 20MG INJ) 10 mg Q6H PRN IV For:SBP above 160;DBP above 90 04/20/24 00:00 05/20/24 00:00 Ketorolac Tromethamine (ketOROlac troMETHamine) 10 mg Q8H PO 04/20/24 00:00 04/20/24 00:01 DC Lactated Ringer's 1,000 ml @ 75 mls/hr [id number] IV 04/20/24 00:00 05/20/24 00:00 04/22/24 17:33 75 MLS/HR Magnesium Sulfate 50 ml @ 0 mls/hr PROTOCOL PRN IV MAGNESIUM PROTOCOL 04/21/24 16:30 05/21/24 16:29 Morphine Sulfate (morPHINE 2MG SYG) 2 mg ONCE IVP 04/19/24 18:06 04/19/24 22:00 DC 04/19/24 18:13 2 MG Morphine Sulfate (morPHINE 4MG SYG) 4 mg Q4H PRN IVP SEVERE PAIN (7-10) 04/20/24 00:00 04/25/24 02:59 DC Ondansetron HCl (zoFRAN 4MG INJ) 4 mg ONCE IVP 04/19/24 18:06 04/19/24 22:00 DC 04/19/24 18:12 4 MG Ondansetron HCl (zoFRAN 4MG INJ) 4 mg Q6H PRN IV NAUSEA/VOMITING 04/20/24 00:00 05/20/24 00:00 Pantoprazole Sodium (PROTonix 40MG TAB) 40 mg Q24H PO 04/20/24 00:30 05/20/24 00:29 04/25/24 00:59 40 MG Potassium Chloride 100 ml @ 100 mls/hr AD PRN IV POTASSIUM PROTOCOL 04/21/24 16:30 05/21/24 16:29 Potassium Chloride (K-Dur/Klor-Con 20meq) 20 meq AD PRN PO POTASSIUM PROTOCOL 04/21/24 16:30 05/21/24 16:29 04/23/24 18:43 20 MEQ Potassium Chloride (KCl 10% Elixir 20meq/15ml) 20 meq AD PRN PO POTASSIUM PROTOCOL 04/21/24 16:30 05/21/24 16:29 Tamsulosin HCl (FloMAX) 0.4 mg DAILY PO 04/20/24 09:00 04/20/24 11:50 DC Tamsulosin HCl (FloMAX) 0.4 mg Q24H PO 04/20/24 21:00 05/20/24 20:59 04/23/24 20:52 0.4 MG DIAGNOSTICS / RADIOLOGY: [ ] ASSESSMENT: ASSESSMENT: Urinary tract infection, Proteus POA Bacteremia, Proteus, POA Retained renal stone at left ureteropelvic junction Left hydronephrosis/hydroureter EFRA, resolved POA Hyperglycemia without a past medical history of Diabetes mellitius type2, POA Nephrolithiasis 4 mm left ureteral calculi PLAN: Patient remains admitted to the medical floor. Continue the patient on broad-spectrum IV antibiotics. Trend WBC in a.m. Follow results of urine culture and adjust antibiotics according to identification and sensitivity Continue to follow urology and infectious disease input and recommendations. NEURO: Minimize central acting medications as possible. Fall Precautions. Well lighted room through the day and minimize interruptions through the night to prevent acute delirium. PULMONARY: Supplemental 02 as needed BiPAP as necessary, for respiratory distress Titrate Fio2 to keep Spo2 > or = 90% DuoNebs and CPT as needed IS hourly while awake for pulmonary hygiene prn Out of bed to chair as tolerated Maintain aspiration precautions at all times CARDIOVASCULAR: Follow hemodynamics. Vital signs per facility protocol GI & NUTRITION: Continue nutritional support Aspirations precautions Prokinetic agents and laxatives as needed KIDNEYS & ELECTROLYTES: Strict monitoring of intake and output Daily weights Avoid nephrotoxic agents Monitor electrolytes and replace as needed Goal urine output of 30mL/hr or 0.5mL/kg/hr Medications to be dosed according to renal function. Avoid contrast if possible ENDOCRINE: Maintain blood glucose between 100-180 at all times. Insulin sliding scale for blood glucose management Hypoglycemia and hyperglycemia protocol in place INFECTIOUS DISEASE: Trend temperature, WBC and procalcitonin level Follow cultures, deescalate antibiotics as soon as possible. Panculture if new onset fever HEMATOLOGY & COAGULATION: Monitor H&H. Keep Hgb > 7 Transfuse 1 unit of PRBC for Hgb < 7 Transfuse 1 pack of platelets of platelets < 20, 000 Watch for any signs and symptoms of bleeding SKIN: Pressure ulcer prevention per facility protocol Specialty mattress as needed ORTHO/REHAB Continue PT/OT PRN: MEDICATIONS Tylenol 650 mg po every 4 hrs for fever zofran 4 mg IV every 6 hrs for n/v Hydralazine 5 mg IV every 4 hrs systolic pressure > 160 bowel regiment: lactulose 20 gm PO BID PRN constipation Supportive measures: Continue GI and DVT prophylaxis Disposition: Pending improvement in clinical condition. All questions answered time spent: > 35 min VONDA WILDE MD Apr 25, 2024 11:42
--- NOTE | 2024-04-25 17:51 | PN ---
INFECTIOUS DISEASE PROGRESS NOTE Date of Service: Apr 25, 2024 SUBJECTIVE: This is a 39-year-old female patient who was seen and examined at bedside in room 327. Patient is awake, alert and oriented x3. Patient is status post Cystourethroscopy with removal of left ureteral calculi and left ureteral stent placement day # 1. The WBC is elevated this morning at 20.9. Patient is afebrile, temperature is 98.4. From Infectious Disease standpoint patient can be discharged to home on Vantin x 14 days when ready to be discharge. Prescription was written. PHYSICAL EXAM EYES: Anicteric. Pupils equal and reactive. HENT: No oral thrush seen, moist Oral mucosa. NECK: Supple, no JVD or thyromegaly. LUNGS: Good air entry. No rales, no rhonchi. CARDIOVASCULAR: S1, S2 regular. No murmur heard. ABDOMEN: Soft, non tender, bowel sounds present, no organomegaly. CENTRAL NERVOUS SYSTEM: Awake, alert, oriented x 3. SKIN: No rashes, no swelling. LYMPHATICS: No peripheral lymphadenopathy. MUSCULOSKELETAL: No joint swelling, erythema or tenderness. EXTREMITIES: No cyanosis or clubbing BACK: No deformity, no pressure ulcer. GENITOURINARY: Dysuria POA. Vital Sign (Last 12 Hours) 04/25/24 04/25/24 04/25/24 08:28 12:21 16:00 Temp 98.2 98.4 98.8 Pulse 115 94 89 Resp 18 19 18 B/P (MAP) 119/70 119/74 116/78 Pulse Ox 95 97 97 O2 Delivery Room Air Room Air Room Air Intake & Output (last 24hrs) 04/24/24 04/24/24 04/25/24 15:00 23:00 07:00 Output Total 700 ml 700 ml Balance -700 ml -700 ml LABS: Laboratory: Test 04/25/24 03:16 Range/Units White Blood Count 20.9 #H 4.8-10.8 K/uL Red Blood Count 4.29 4.00-5.50 MIL/uL Hemoglobin 13.2 12.0-16.0 g/dL Hematocrit 38.5 36-48 % Mean Corpuscular Volume 89.7 79-99 fL Mean Corpuscular Hemoglobin 30.8 27.0-33.0 pg Mean Corpuscular Hemoglobin Concent 34.3 32.0-36.0 g/dL Red Cell Distribution Width 12.3 11.0-15.5 % Platelet Count 302 130-400 K/uL Mean Platelet Volume 9.6 7.5-10.5 fL Immature Granulocyte % (Auto) 2.0 H 0-1 % Neutrophils (%) (Auto) 89.1 H 40.0-77.0 % Lymphocytes (%) (Auto) 4.6 L 21.0-51.0 % Monocytes (%) (Auto) 3.9 3.0-13.0 % Eosinophils (%) (Auto) 0.0 0.0-8.0 % Basophils (%) (Auto) 0.4 0.0-5.0 % Neutrophils # (Auto) 18.6 H 1.8-7.7 K/uL Lymphocytes # (Auto) 1.0 1.0-4.8 K/uL Monocytes # (Auto) 0.8 0.1-1.0 K/uL Eosinophils # (Auto) 0.01 0.00-0.70 K/uL Basophils # (Auto) 0.09 0.00-0.20 K/uL Absolute Immature Granulocyte (auto 0.42 0-1 K/uL Nucleated Red Blood Cells 0.0 0.0-0.19 % Sodium Level 136 136-145 mmol/L Potassium Level 4.2 3.5-5.1 mmol/L Chloride Level 101 101-111 mmol/L Carbon Dioxide Level 27 21-32 mmol/L Blood Urea Nitrogen 11 7-18 mg/dL Creatinine 0.6 0.5-1.0 mg/dL Glomerular Filtration Rate Calc 116 >90 mL/min Random Glucose 132 H 70-105 mg/dL Total Calcium 8.9 8.5-10.1 mg/dL ASSESSMENT: Proteus mirabilis bacteremia. Urinary tract infection with Proteus mirabilis. Left Hydronephrosis. Bilateral Nephrolithiasis, s/p Cystourethroscopy with removal of left ureteral calculi and left ureteral stent placement on 04/24/2024. Leukocytosis. PLAN: From Infectious Disease standpoint patient can be discharged to home on Vantin x 14 days when ready to discharge. Prescription was written. This case was reviewed and discussed with my supervising physician and the above assessment and plan was formulated and agreed upon. ATTESTATION BY PHYSICIAN I have seen and examined the patient. I reviewed the documentation, medical decision making, and treatment plan as noted by the mid-level provider above. I agree with the findings and plan of care. MARLEN MARSHALL MD, [facility] Apr 25, 2024 17:51
[2024-04-26 04:00] VITALS: BP 111/67; PULSE 84; RESP 16; TEMP 98.2
[2024-04-26 05:32] LABS: BASOPHILS # (AUTO) 0.06 K/uL (0.00-0.20); BASOPHILS % (AUTO) 0.4 % (0.0-5.0); EOSINOPHILS # (AUTO) 0.09 K/uL (0.00-0.70); EOSINOPHILS % (AUTO) 0.7 % (0.0-8.0); HEMATOCRIT 33.6 % (36-48); IMMATURE GRANULOCYTE ABSOLUTE 0.25 K/uL (0-1); LYMPHOCYTES # (AUTO) 2.8 K/uL (1.0-4.8); MEAN CORPUSCULAR HEMOGLOBIN 30.1 pg (27.0-33.0); MEAN CORPUSCULAR HGB CONC 34.2 g/dL (32.0-36.0); MONOCYTES # (AUTO) 0.8 K/uL (0.1-1.0); MONOCYTES % (AUTO) 5.6 % (3.0-13.0); NEUTROPHILS # (AUTO) 9.4 K/uL (1.8-7.7); NEUTROPHILS % (AUTO) 70.4 % (40.0-77.0); PLATELET COUNT (AUTO) 335 K/uL (130-400); RED BLOOD CELL COUNT(AUTO) 3.82 MIL/uL (4.00-5.50); RED CELL DISTRIBUTION WIDTH 12.5 % (11.0-15.5); WHITE BLOOD COUNT (AUTO) 13.3 K/uL (4.8-10.8)
[2024-04-26 06:14] LABS: ALBUMIN 2.8 g/dL (3.5-5.0); BILIRUBIN,TOTAL 0.3 mg/dL (0.2-1.0); CREATININE 0.6 mg/dL (0.5-1.0); MAGNESIUM 1.7 mg/dL (1.80-2.40); POTASSIUM 3.5 mmol/L (3.5-5.1); TOTAL PROTEIN, SERUM 5.9 g/dL (6.0-8.3)
[2024-04-26] MEDS: MAGNESIUM 2GM PREMIX 50ML 50 ML IV PRN (06:55)
[2024-04-26 08:00] VITALS: O2SAT 97
[2024-04-26 08:20] VITALS: BP 115/70; PULSE 93; RESP 16; TEMP 98.1
--- NOTE | 2024-04-26 09:00 | NUR ---
PATIENT WITH PLANS FOR DISCHARGE. DISCUSSED PLAN OF CARE, HOME MEDICATIONS, NEW PRESCRIPTIONS, FOLLOW UP APPOINTMENTS, ANTIBIOTIC THERAPY AND PAIN MANAGEMENT. PATIENT VERBALIZED UNDERSTANDING.
[2024-04-26] MEDS ORDERED: MAGNESIUM 2GM PREMIX 50ML 50 ML IV SCH (10:30)
[2024-04-26] MEDS ORDERED: PoTASSium chloRIDE 20MEQ ER 20 MEQ ERTAB PO ONE (10:30)
--- NOTE | 2024-04-26 10:30 | NUR ---
CALLED DR. CORBETT OFFICE FOR FOLLOW UP APPOINTMENT. SPOKE WITH [employer] DIRECTOR Ish CAIT, SHE STATED THAT A APPOINTMENT CAN NOT BE DONE AT THIS TIME DUE TO NOT KNOWING WHEN DR. CORBETT WANTS TO FOLLOW UP WITH PATIENT. STATED SHE WILL CALL PATIENT DIRECTLY TO SET UP APPOINTMENT. ENCOURAGED PATIENT TO CALL IN AM TO FOLLOW UP. PATIENT VERBALIZED UNDERSTANDING.
--- NOTE | 2024-04-26 11:30 | NUR ---
PATIENT WITH DISCHARGE ORDERS. DISCONTINUED IV ACCESS. NO SIGNS OF SHORTNESS OF BREATH. PATIENT VERBALIZED NO PAIN AT THE MOMENT.GAVE PATIENT ORIGINAL PRESCRIPTION.( COPY O CHART). WHEELED PATIENT TO [facility]. PATIENT LEFT IN PRIVATE CAR WITH FAMILY.
--- NOTE | 2024-04-26 11:37 | DS ---
Discharge Summary Hospital Course Summary: 39-year-old female, presented to the emergency room with a chief complaint of dysuria. Patient also reported nausea and vomiting. In the emergency room patient noted to have creatinine of 1.2. UA positive for nitrite, leukocyte esterase. CT of abdomen and pelvis shows bilateral nephrolithiasis, mild left hydroureteronephrosis with 4 mm calculus to the left ureter. Patient admitted to the medical floor, supportive care with IV fluids, pain medication and broad-spectrum IV antibiotics done. Patient with a urine culture and blood culture positive for Proteus mirabilis. Infectious Disease consultation requested, repeat blood cultures has remained negative. During the course of the hospitalization, patient taken to the operating room 04/24/2024, underwent removal left ureteral calculi and dilatation of left ureteral stricture with a insertion of left ureteral stent. Tolerated the procedure well. Today patient is alert oriented x3, hemodynamically stable, plan is for the patient to be discharged home. Prescription for Vantin 200 mg p.o. b.i.d. for 14 days provided by Infectious Disease. Arabic Linguist(s): Infectious Disease and urologist. Procedure(s): PROCEDURE: 1. 39798 Cystourethroscopy with left ureteroscopy with manipulation and removal of left ureteral calculi using a ZeroTip basket 2. 80915 Cystourethroscopy with left ureteroscopy with dilation of a left ureteral stricture 3. 63225 Cystourethroscopy with insertion of a left ureteral stent 4. 76925 Left retrograde pyelogram with interpretation Assessment/Plan: Final diagnosis Urinary tract infection, Proteus POA Bacteremia, Proteus, POA Retained renal stone at left ureteropelvic junction Left hydronephrosis/hydroureter EFRA, resolved POA Hyperglycemia without a past medical history of Diabetes mellitius type2, POA Nephrolithiasis 4 mm left ureteral calculi status post left ureteral calculi removal, dilatation of left ureteral stricture and stent placement 04/24/2024 Discharge Instructions: The patient to follow up with primary care physician as an outpatient, as well as with the urologist Dr Cantor as an outpatient and to return to the hospital if her condition changes. Prescription for Vantin 200 mg p.o. b.i.d. for 14 days provided to the patient. Patient agreed with plan and understood the information provided. Time spent arranging discharge: 31-60 minutes VONDA WILDE MD Apr 26, 2024 11:37
== END 2024-04-26 12:30 | disposition home or self-care (01) | DRG 854 ==
LOC: EDH 12:58 → EDHIP 21:53 → 3DH 04-20 00:45
PROVIDERS: ADMIT Internal Medicine; ATTEND Internal Medicine
PROC: 0TC78ZZ Extirpation of Matter from Left Ureter, Via Natural or Artificial Opening Endoscopic (ICD-10-PCS; principal; 2024-04-24 21:46)
PROC: 0T778DZ Dilation of Left Ureter with Intraluminal Device, Via Natural or Artificial Opening Endoscopic (ICD-10-PCS; 2024-04-24 21:46)
PROC: BT1F1ZZ Fluoroscopy of Left Kidney, Ureter and Bladder using Low Osmolar Contrast (ICD-10-PCS; 2024-04-24 21:46)
DX: A41.9 Sepsis, unspecified organism (principal); N13.6 Pyonephrosis; N17.9 Acute kidney failure, unspecified; N18.9 Chronic kidney disease, unspecified; R73.9 Hyperglycemia, unspecified; B96.4 Proteus (mirabilis) (morganii) as the cause of diseases classified elsewhere; B96.89 Other specified bacterial agents as the cause of diseases classified elsewhere; Z79.899 Other long term (current) drug therapy
CPT/HCPCS: 36415; 74176; 74420; 80048; 80053; 81001; 81025; 82360; 82570; 83036; 83605; 83735; 83935; 84100; 84300; 85025; 87040; 87086; 87186; 96374; 96375; 99291; A4355; C1758; C2617; G0378; J0330; J0696; J1100; J1644; J1885; J2003; J2250; J2270; J2371; J2405; J2704; J2710; J3010; J3475; J3490; J7030; J7120; Q9967; A4358; C1726